=== PATIENT | male | born 1980 | race Hispanic/Latino ===

== ENCOUNTER 2021-01-06 16:28 | Inpatient (IN) | payer OTHER, SELFPAY ==
[2021-01-06] MEDS ORDERED: SODIUM CHLORIDE 0.9% 1000 ML 1,000 ML IV ONE ×3 (16:42→18:15)
[2021-01-06] MEDS ORDERED: LORazepam 2 MG/ML VIAL ONE (17:03)
[2021-01-06 17:16] LABS: Bilirubin,Urine NEG (Negative); Blood,Urine NEG (Negative); Color,Urine Yellow (Yellow); Mucus,Urine FEW /HPF; Protein,Urine <15 mg/dL mg/dL (Negative); Urobilinogen,Urine < 2.0 mg/dL (<2.0)
[2021-01-06 17:24] LABS: Benzodiazepines Screen,Urine Negative; Cocaine Screen,Urine Negative; Methadone Screen,Urine Negative; Opiate Screen,Urine Negative
--- NOTE | 2021-01-06 17:30 | Emergency Department Report ---
HPI - General Chief Complaint: Psych Time Seen by Provider: 01/06/21 16:40 - HPI HPI: 40-year-old male with history of unknown psychiatric disorder off of his medications as well as methamphetamine use brought in by EMS after the patient called 911 and stated that he needed to be evaluated because he used a bunch of meth. He stated that he has been off of his psychiatric medications and he feels that he is being followed. He apparently denied SI/HI to EMS but he did tell them that last night he thought the police were coming for him and so he swallowed "an eight ball of meth". After the patient was brought in by EMS and while waiting for bed to be available, the patient went to use the bathroom and provided a urine sample. He again went to use the bathroom and after approximately 2 minutes when one of the staff heard gurgling they opened the door and discovered the patient with his own belt wrapped around his neck which was tied to a part of the toilet. The belt was immediately cut and the patient was moved to a stretcher with assistance. I was called over at this time and this was my first introduction to the patient. When I went to assess the patient he was with snoring respirations with obvious ligature heredia around his neck and a plethoric appearing face. He was not following commands. He had a strong pulse. I immediately had the patient brought into a monitored room. Further details of the HPI are thus limited due to the patient's clinical condition. ED Past Medical Hx - Past Medical History Previous Medical History?: Yes Additional medical history: Psychiatric history, methamphetamine use - Social History Substance Use Type: Methamphetamines ED Review of Systems ROS: Stated complaint: PARANOID Other details as noted in HPI Comment: Unobtainable due to pts medical conditions Physical Exam - Physical Exam Physical Exam: Initial assessment as dictated in the MDM. The following physical examination was performed after appropriate sedation was achieved to ensure safety of both the patient and our staff. GENERAL: Well developed and well nourished. Extremely somnolent and with GCS of 10 HEAD: Normocephalic. No obvious contusions, lacerations, or abrasions. ENT: Dry mucous membranes. Abrasion seen to the inner lower lip EYES: Pupils are equal round and reactive to light bilaterally NECK: Trachea is midline. LUNGS: Snoring respirations but with appropriate rate. Equal chest rise bilaterally. Clear to auscultation bilaterally. CARDIOVASCULAR: Tachycardic but with regular rhythm. No murmurs or rubs. VASCULAR: Cap refill < 2 seconds. 2+ pulses in all 4 extremities ABDOMEN: Abdomen is soft and nondistended. There is no significant tenderness, guarding or rebound. SKIN: Skin is warm and dry but slightly pale. The patient's chest and abdomen are shaved and there are several scattered lesions consistent with folliculitis NEURO: Patient is sedated and unable to cooperate with neurologic examination. His GCS is 10 (E3, V2, M5). 2+ DTRs. No rigidity. Prior to sedation patient was moving all 4 extremities with great strength BACK/SPINE: No step-offs of the C/T/L spine. No obvious contusions/abrasions/lacerations ED Medical Decision Making - Lab Data Result diagrams: 01/06/21 17:21 01/06/21 17:21 Lab Results 01/06/21 01/06/21 01/06/21 Range/Units 17:21 17:21 17:21 WBC 7.1 (4.5-11.0) K/mm3 RBC 4.85 (3.65-5.03) M/mm3 Hgb 15.8 H (11.8-15.2) gm/dl Hct 46.1 H (35.5-45.6) % MCV 95 H (84-94) fl MCH 33 H (28-32) pg MCHC 34 (32-34) % RDW 15.4 H (13.2-15.2) % Plt Count 188 (140-440) K/mm3 Lymph % (Auto) 12.5 L (13.4-35.0) % Tama % (Auto) 8.7 H (0.0-7.3) % Eos % (Auto) 0.5 (0.0-4.3) % Baso % (Auto) 0.5 (0.0-1.8) % Lymph # (Auto) 0.9 L (1.2-5.4) K/mm3 Tama # (Auto) 0.6 (0.0-0.8) K/mm3 Eos # (Auto) 0.0 (0.0-0.4) K/mm3 Baso # (Auto) 0.0 (0.0-0.1) K/mm3 Seg Neutrophils % 77.8 H (40.0-70.0) % Seg Neutrophils # 5.5 (1.8-7.7) K/mm3 Sodium 134 L (137-145) mmol/L Potassium 4.1 (3.6-5.0) mmol/L Chloride 94.6 L (98-107) mmol/L Carbon Dioxide 14 L (22-30) mmol/L Anion Gap 30 mmol/L BUN 8 L (9-20) mg/dL Creatinine 1.0 (0.8-1.3) mg/dL Estimated GFR > 60 ml/min BUN/Creatinine Ratio 8 % Glucose 122 H (75-100) mg/dL Calcium 9.5 (8.4-10.2) mg/dL Total Bilirubin 0.90 (0.1-1.2) mg/dL AST 53 H (5-40) units/L ALT 42 (7-56) units/L Alkaline Phosphatase 61 (35-129) units/L Total Creatine Kinase (55-170) units/L Total Protein 7.2 (6.3-8.2) g/dL Albumin 4.1 (3.9-5) g/dL Albumin/Globulin Ratio 1.3 % TSH (0.270-4.200) mlU/mL Salicylates < 0.3 L (2.8-20.0) mg/dL Acetaminophen (10.0-30.0) ug/mL Plasma/Serum Alcohol (0-0.07) % 01/06/21 01/06/21 01/06/21 Range/Units 17:21 17:21 17:21 WBC (4.5-11.0) K/mm3 RBC (3.65-5.03) M/mm3 Hgb (11.8-15.2) gm/dl Hct (35.5-45.6) % MCV (84-94) fl MCH (28-32) pg MCHC (32-34) % RDW (13.2-15.2) % Plt Count (140-440) K/mm3 Lymph % (Auto) (13.4-35.0) % Tama % (Auto) (0.0-7.3) % Eos % (Auto) (0.0-4.3) % Baso % (Auto) (0.0-1.8) % Lymph # (Auto) (1.2-5.4) K/mm3 Tama # (Auto) (0.0-0.8) K/mm3 Eos # (Auto) (0.0-0.4) K/mm3 Baso # (Auto) (0.0-0.1) K/mm3 Seg Neutrophils % (40.0-70.0) % Seg Neutrophils # (1.8-7.7) K/mm3 Sodium (137-145) mmol/L Potassium (3.6-5.0) mmol/L Chloride (98-107) mmol/L Carbon Dioxide (22-30) mmol/L Anion Gap mmol/L BUN (9-20) mg/dL Creatinine (0.8-1.3) mg/dL Estimated GFR ml/min BUN/Creatinine Ratio % Glucose (75-100) mg/dL Calcium (8.4-10.2) mg/dL Total Bilirubin (0.1-1.2) mg/dL AST (5-40) units/L ALT (7-56) units/L Alkaline Phosphatase (35-129) units/L Total Creatine Kinase (55-170) units/L Total Protein (6.3-8.2) g/dL Albumin (3.9-5) g/dL Albumin/Globulin Ratio % TSH 2.610 (0.270-4.200) mlU/mL Salicylates (2.8-20.0) mg/dL Acetaminophen 5.0 L (10.0-30.0) ug/mL Plasma/Serum Alcohol < 0.01 (0-0.07) % 01/06/21 Range/Units 17:21 WBC (4.5-11.0) K/mm3 RBC (3.65-5.03) M/mm3 Hgb (11.8-15.2) gm/dl Hct (35.5-45.6) % MCV (84-94) fl MCH (28-32) pg MCHC (32-34) % RDW (13.2-15.2) % Plt Count (140-440) K/mm3 Lymph % (Auto) (13.4-35.0) % Tama % (Auto) (0.0-7.3) % Eos % (Auto) (0.0-4.3) % Baso % (Auto) (0.0-1.8) % Lymph # (Auto) (1.2-5.4) K/mm3 Tama # (Auto) (0.0-0.8) K/mm3 Eos # (Auto) (0.0-0.4) K/mm3 Baso # (Auto) (0.0-0.1) K/mm3 Seg Neutrophils % (40.0-70.0) % Seg Neutrophils # (1.8-7.7) K/mm3 Sodium (137-145) mmol/L Potassium (3.6-5.0) mmol/L Chloride (98-107) mmol/L Carbon Dioxide (22-30) mmol/L Anion Gap mmol/L BUN (9-20) mg/dL Creatinine (0.8-1.3) mg/dL Estimated GFR ml/min BUN/Creatinine Ratio % Glucose (75-100) mg/dL Calcium (8.4-10.2) mg/dL Total Bilirubin (0.1-1.2) mg/dL AST (5-40) units/L ALT (7-56) units/L Alkaline Phosphatase (35-129) units/L Total Creatine Kinase 505 H (55-170) units/L Total Protein (6.3-8.2) g/dL Albumin (3.9-5) g/dL Albumin/Globulin Ratio % TSH (0.270-4.200) mlU/mL Salicylates (2.8-20.0) mg/dL Acetaminophen (10.0-30.0) ug/mL Plasma/Serum Alcohol (0-0.07) % - EKG Data -: EKG Interpreted by Mi - EKG Data 01/06/21 18:27 Normal sinus rhythm. Normal axis. Normal intervals. No ectopy. No significant ST segment or T wave abnormalities. - Radiology Data CHEST 1 VIEW 01/06/2021 4:40 PM INDICATION / CLINICAL INFORMATION: Medical Cl earance Psych; s/p attempted strangulation. COMPARISON: None available. FINDINGS: SUPPORT DEVICES: None. HEART / MEDIASTINUM: No significant abnormality. LUNGS / PLEURA: No significant pulmonary abnormality. No significant pleural effusion. No pneumothorax. ADDITIONAL FINDINGS: No significant additional findings. IMPRESSION: 1. No acute abnormality of the chest. Signer Name: Brent Grady MD Signed: 01/06/2021 4:44 PM Workstation Name: [id number] ABDOMEN 1 VIEW INDICATION / CLINICAL INFORMATION: Says he ingested "8-ball" of meth. COMPARISON: None available. FINDINGS: TUBES / LINES: None. BOWEL GAS PATTERN: No significant abnormality. FREE AIR / EXTRALUMINAL GAS: None seen. ADDITIONAL FINDINGS: No radiopaque foreign bodies are identified. IMPRESSION: No radiopaque foreign body or other significant abnormality. Signer Name: Brent Grady MD Signed: 01/06/2021 4:47 PM Workstation Name: [id number] - Medical Decision Making 40-year-old male with history of unknown psychiatric disorder off of his medications as well as methamphetamine use brought in by EMS after the patient called 911 and stated that he needed to be evaluated because he used "a bunch of meth." He stated that he has been off of his psychiatric medications and relayed paranoid thoughts to EMS. He also told them that last night he thought the police were coming for him and so he swallowed "an eight ball of meth". After the patient was brought in by EMS and while waiting for bed to be available, the patient at one point went to use the bathroom and after approximately 2 minutes when one of the staff that was monitoring him heard gurgling they immediately entered the bathroom and discovered the patient with his own belt wrapped around his neck which was tied to a part of the toilet. The belt was immediately cut and the patient was moved to a stretcher with assistance. I was called over at this time and this was my first introduction to the patient. When I went to assess the patient he was with snoring respirations with obvious ligature heredia around his neck and a plethoric appearing face. He was not following commands. He had a strong pulse. I immediately had the patient brought into a monitored room. Although initially the patient was unarousable, he soon became very agitated and began yelling and screaming and trying to fight with staff. For his safety, the patient was put in four-point restraints and 5 mg of IM Haldol and 50 mg of Benadryl were admin istered followed by 2 mg of Ativan. He remained tachycardic in the 150s and with extreme agitation and a further 2 mg of Ativan was given. Shortly thereafter, when the patient became more sedated I was able to assess him further and he was noted to have heart rate in the 130s, normal blood pressure, normal temperature, normal oxygen saturation on room air. He is noted to have dry mucous membranes and an abrasion to his inner lower lip. He is diaphoretic. His pupils are equal round and reactive to light bilaterally. Otherwise there are no significant abnormalities discovered on physical examination. Given that the patient admitted to use of methamphetamine and attempted to end his own life, 2013 order was signed and initiated. Full medical clearance set of labs were ordered. In addition I have also ordered CT of the head and C-spine to assess for evidence of intracranial hemorrhage, or cervical spine injury given that the patient was unconscious when initially discovered. Because he reported swallowing a bag of methamphetamine, I have also ordered a chest x-ray and KUB. CK was added to medical clearance labs as well as EKG. 2 L of IV fluids have been ordered. We will plan to give Ativan if necessary for his agitation. We will place a call to poison control. At 5:15 PM I spoke to Butch from [place] poison control regarding the case. He agrees with my current work-up and management and recommends only further supportive care and control of agitation with benzodiazepines. On repeat assessment at 5:50 PM, the patient's tachycardia has resolved. His heart rate is in the 80s. His blood pressure is normal. His oxygen saturation is in the high 90s on room air. Awaiting diagnostic study results. Labs have resulted and reveal white blood cell count of 7.1 and hemoglobin of 15.8 which is consistent with hemoconcentration due to dehydration. His creatinine is 1.0 and his BUN is 8 but he has a bicarb of 14 and CK of 505. There are otherwise no significant electrolyte abnormalities. Urinalysis is within normal limits. UDS is positive for methamphetamine and THC. Acetaminophen, salicylates, and blood alcohol are negative. I have ordered an additional 1 L of IV fluids. Chest x-ray reveals no evidence of pneumonia and no other acute abnormalities. KUB reveals no radiopaque foreign bodies and no other significant abnormalities. We will continue to monitor the patient closely. Despite giving the patient several hours to washout, he remains with extreme agitation requiring multiple doses of IV lorazepam. At 9:37 PM, the patient was found banging his head against the side railing despite being in four-point restraints. He was given Ativan with subsequent sedation. He has only a small superficial laceration to the nose. There is no septal hematoma. We will add CT of the face to the other scans. CT of the head, face, and C-spine reveal no acute traumatic injuries At 10 PM I spoke with Dr. Munoz the on-call hospitalist regarding the case. He accepts the patient for admission to the ICU and will assume care. Critical Care Time: Yes Critical care time in (mins) excluding proc time.: 90 Critical care attestation.: If time is entered above; I have spent that time in minutes in the direct care of this critically ill patient, excluding procedure time. Critical care time was spent in the evaluation/assessment, work-up, and management of attempted suicide by hanging, methamphetamine intoxication, hyperactive delirium requiring four-point restraints, multiple doses of IV sedatives, supplemental oxygen, and multiple reevaluations and reassessments ED Disposition Clinical Impression: Suicide attempt by hanging, Methamphetamine intoxication, Acute hyperactive delirium due to multiple etiologies, Contusion of face Disposition: -09 OP ADMIT IP TO THIS HOSP Is pt being admited?: Yes Condition: Serious
[2021-01-06 17:36] LABS: Amphetamine Screen,Urine Positive; Cannabinoid Screen,Urine Positive
[2021-01-06] MEDS ORDERED: HALOPERIDOL LACTATE 5 MG/1 ML INJ IM ONE (17:44)
[2021-01-06] MEDS ORDERED: diphenhydrAMINE 50 MG/ML VIAL IV ONE (17:45)
[2021-01-06] MEDS ORDERED: LORazepam 2 MG/ML VIAL IV ONE ×7 (17:45→21:40)
--- NOTE | 2021-01-06 17:49 | XRay Report ---
CHEST 1 VIEW 01/06/2021 4:40 PM INDICATION / CLINICAL INFORMATION: Medical Clearance Psych; s/p attempted strangulation. COMPARISON: None available. FINDINGS: SUPPORT DEVICES: None. HEART / MEDIASTINUM: No significant abnormality. LUNGS / PLEURA: No significant pulmonary abnormality. No significant pleural effusion. No pneumothora x. ADDITIONAL FINDINGS: No significant additional findings. IMPRESSION: 1. No acute abnormality of the chest. Signer Name: Brent Grady MD Signed: 01/06/2021 5:44 PM Workstation Name: [id number]
--- NOTE | 2021-01-06 17:52 | XRay Report ---
ABDOMEN 1 VIEW INDICATION / CLINICAL INFORMATION: Says he ingested "8-ball" of meth. COMPARISON: None available. FINDINGS: TUBES / LINES: None. BOWEL GAS PATTERN: No significant abnormality. FREE AIR / EXTRALUMINAL GAS: None seen. ADDITIONAL FINDINGS: No radiopaque foreign bodies are identified. IMPRESSION: No radiopaque foreign body or other significant abnormality. Signer Name: Brent Grady MD Signed: 01/06/2021 5:47 PM Workstation Name: [id number]
[2021-01-06 18:01] LABS: Alanine Aminotransferase 42 units/L (7-56); Albumin 4.1 g/dL (3.9-5); BUN/Creatinine Ratio 8; Blood Urea Nitrogen 8 mg/dL (9-20); Calcium 9.5 mg/dL (8.4-10.2); Hemolysis Index 148
[2021-01-06 18:07] LABS: Basophils % (Auto) 0.5 % (0.0-1.8); Eosinophils % (Auto) 0.5 % (0.0-4.3); Hematocrit 46.1 % (35.5-45.6); Hemoglobin 15.8 gm/dl (11.8-15.2); Lymphocytes # (Auto) 0.9 K/mm3 (1.2-5.4); Lymphocytes % (Auto) 12.5 % (13.4-35.0); Mean Corpuscular HGB Conc 34 % (32-34); Mean Corpuscular Volume 95 fl (84-94); Monocytes # (Auto) 0.6 K/mm3 (0.0-0.8); Monocytes % (Auto) 8.7 % (0.0-7.3); Red Blood Count 4.85 M/mm3 (3.65-5.03); Red Cell Distribution Width 15.4 % (13.2-15.2)
[2021-01-06 18:09] LABS: Platelet Count 188 K/mm3 (140-440)
[2021-01-06] MEDS ORDERED: LORazepam 2 MG/ML VIAL IM ONE (20:05)
--- NOTE | 2021-01-06 22:16 | Cat Scan Report ---
CT HEAD WITHOUT CONTRAST INDICATION / CLINICAL INFORMATION: Status-Post attempted strangulation. TECHNIQUE: All CT scans at this location are performed using CT dose reduction for ALARA by means of automated e xposure control. COMPARISON: None available. FINDINGS: HEMORRHAGE: No evidence of intracranial hemorrhage or extra-axial fluid collection. EXTRA-AXIAL SPACES: Cortical sulci, sylvian fissures and basilar cisterns have an unremarkable appear ance. VENTRICULAR SYSTEM: The third and lateral ventricles are of normal size and configuration. CEREBRAL PARENCHYMA: No areas of abnormal brain parenchymal attenuation are identified. There is no i ndication of recent infarction. MIDLINE SHIFT OR HERNIATION: There is no mass effect. CEREBELLUM / BRAINSTEM: Brainstem and cerebellum have an unremarkable appearance. MIDLINE STRUCTURES:No abnormalities of the pituitary gland or pineal region are identified. INTRACRANIAL VESSELS:No abnormalities are identified on this noncontrast head CT. ORBITS: visualized portions of the orbits have an unremarkable appearance. SOFT TISSUES of HEAD: No significant abnormality. CALVARIUM: Evaluation of bone windows reveals no abnormalities. PARANASAL SINUSES / MASTOID AIR CELLS: Visualized portions of the paranasal sinuses are free from inf lammatory mucosal disease. Mastoid air cells are normally pneumatized. IMPRESSION: 1. No significant intercranial abnormality is demonstrated on head CT without contrast. Signer Name: Jacky Marin MD Signed: 01/06/2021 10:11 PM Workstation Name: [id number]
--- NOTE | 2021-01-06 22:19 | Cat Scan Report ---
CT MAXILLOFACIAL WITHOUT CONTRAST INDICATION / CLINICAL INFORMATION: trauma. TECHNIQUE: All CT scans at this location are performed using CT dose reduction for ALARA by means of automated e xposure control. COMPARISON: None available. FINDINGS: FACIAL BONES: No fracture or other significant abnormality. COUNSEL SPACES:Evaluation of the calender machine operator space structures reveal no abnormalities. SALIVARY GLANDS: Visualized portions of the parotid and the submandibular salivary glands have an unr emarkable appearance. PARANASAL SINUSES: No significant abnormality. NASAL CAVITY: No significant abnormality. ORBITS: Globes, optic nerves and extraocular muscles have an unremarkable appearance. TEMPORAL BONES:Visualized mastoid air cells and the middle ear cavities are normally pneumatized. VISUALIZED INTRACRANIAL STRUCTURES: Please refer to head CT report dictated separately. IMPRESSION: 1. No indication of facial fracture. Signer Name: Jacky Marin MD Signed: 01/06/2021 10:15 PM Workstation Name: [id number]
--- NOTE | 2021-01-06 22:22 | Cat Scan Report ---
CT CERVICAL SPINE WITHOUT CONTRAST INDICATION / CLINICAL INFORMATION: Status-Post attempted strangulation. TECHNIQUE: Axial CT images were obtained through the cervical spine. Sagittal and coronal reformatted images wer e produced. All CT scans at this location are performed using CT dose reduction for ALARA by means of automated exposure control. COMPARISON: None available. FINDINGS: ALIGNMENT: Normal alignment is maintained throughout cervical region. VERTEBRAE: No indication of fracture or bone destruction. DISC SPACES: Disc height is decreased slightly at the C5-6 level but normally maintained elsewhere. DEGENERATIVE CHANGES: Small anterior and posterior osteophytes are present at the C5-6 level. There i s no indication of central canal stenosis or neuroforaminal narrowing. CRANIOCERVICAL JUNCTION:No significant abnormality. SPINAL CANAL: Central spinal canal is adequately maintained throughout. PARASPINAL SOFT TISSUES: No significant abnormality. Abnormalities are seen along the course of the a irway. ADDITIONAL FINDINGS: None. LUNG APICES: No significant abnormality of visualized lungs. IMPRESSION: 1. No indication of fracture or traumatic subluxation. Signer Name: Jacky Marin MD Signed: 01/06/2021 10:18 PM Workstation Name: [id number]
[2021-01-06] MEDS ORDERED: TETANUS,DIPH,PERTUSS(ACELL) VACCINE 0.5 ML SYRINGE IM ONE (23:14)
[2021-01-06] MEDS ORDERED: MAGNESIUM HYDROXIDE (MOM) ORAL LIQD UDC PO PRN (23:34)
[2021-01-06] MEDS ORDERED: ACETAMINOPHEN 325 MG TAB PO PRN (23:34)
[2021-01-06] MEDS ORDERED: SODIUM CHLORIDE 0.9% 1000 ML 1,000 ML IV SCH (23:45)
--- NOTE | 2021-01-06 23:48 | History and Physical Report ---
History of Present Illness Date of examination: 01/06/21 Date of admission: 01/06/21 21:56 Chief complaint: Methamphetamine Ingestion Suicide Attempt History of present illness: 40-year-old male with known history of mental illness and methamphetamine abuse brought into the emergency room by EMS today after he had called 911 and indicates he wants to be evaluated because he used quite a bit of methamphetamine. Patient admitted he had been off his psychiatric medications and needed to be evaluated. He was said to have swallowed a bunch of methamphetamine. Upon arrival in the emergency room patient was said to have gone to the bathroom when his was found to have tied to Díaz's around his neck and also tight to the toilet in an attempt to commit suicide.. He was said to have denied suicidal and homicidal ideations to the ER staff upon arrival. Most of the history was gotten from the ER staff as patient is unable to give any history at this time. He was said to be quite agitated with when he was being restrained in the emergency room. He also sustained some bruises over his face and nose when he was being restrained. Work-up in the emergency room UDS was positive for methamphetamine, other significant findings were that of hemoglobin of 15.8 and hematocrit of 46.1. He had a mild hyponatremia of 134. Poison control was consulted for his methamphetamine ingestion. Recommendation is to have patient monitored and also to place on benzodiazepine as needed for agitation. Past History Past Medical History: other (Mental Illness, Methamphetamine Use) Past Surgical History: No surgical history Social history: other (Methamphetamine Use) Family history: no significant family history Medications and Allergies Allergies Allergy/AdvReac Type Severity Reaction Status Date / Time Unable to Assess Allergy Unverified 01/06/21 17:58 Active Meds: Active Medications Acetaminophen (Acetaminophen 325 Mg Tab) 650 mg PO Q6H PRN PRN Reason: Pain MILD(1-3)/Fever >100.5/WATTS Sodium Chloride (Nacl 0.9% 1000 Ml) 1,000 mls @ 125 mls/hr IV DIRECT CATRINA Magnesium Hydroxide (Magnesium Hydroxide (Mom) Oral Liqd Udc) 30 ml PO Q4H PRN PRN Reason: Constipation Morphine Sulfate (Morphine 2 Mg/1 Ml Inj) 2 mg IV Q4H PRN PRN Reason: Pain, Moderate (4-6) Morphine Sulfate (Morphine 4 Mg/1 Ml Inj) 4 mg IV Q4H PRN PRN Reason: Pain , Severe (7-10) Sodium Chloride (Sodium Chloride 0.9% 10 Ml Flush Syringe) 10 ml IV BID CATRINA Sodium Chloride (Sodium Chloride 0.9% 10 Ml Flush Syringe) 10 ml IV PRN PRN PRN Reason: LINE FLUSH Review of Systems ROS unobtainable: due to mental status Exam - Constitutional Vitals: Temp Pulse Resp BP Pulse Ox 98.4 F 78 18 143/98 99 01/06/21 18:07 01/06/21 22:12 01/06/21 22:12 01/06/21 22:12 01/06/21 22:12 General appearance: Present: no acute distress, well-nourished, other (Bruises over the face) - EENT Eyes: Present: PERRL, EOM intact. Absent: scleral icterus ENT: hearing intact, clear oral mucosa, dentition normal - Neck Neck: Present: supple, normal ROM - Respiratory Respiratory effort: normal Respiratory: bilateral: CTA - Cardiovascular Rhythm: regular Heart Sounds: Present: S1 & S2. Absent: gallop, systolic murmur, diastolic murmur, rub, click - Extremities Extremities: no ischemia, pulses intact, pulses symmetrical, No edema, normal temperature, normal color, Full ROM Peripheral Pulses: within normal limits - Abdominal General gastrointestinal: Present: soft, non-tender, non-distended, normal bowel sounds. Absent: mass - Integumentary Integumentary: Present: clear, warm, dry - Musculoskeletal Musculoskeletal: strength equal bilaterally - Psychiatric Psychiatric: agitated - Neurologic Neurologic: CNII-XII intact, moves all extremities Results - Labs CBC & Chem 7: 01/06/21 17:21 01/06/21 17:21 Labs: Abnormal lab results 01/06/21 01/06/21 01/06/21 Range/Units 17:21 17:21 17:21 Hgb 15.8 H (11.8-15.2) gm/dl Hct 46.1 H (35.5-45.6) % MCV 95 H (84-94) fl MCH 33 H (28-32) pg RDW 15.4 H (13.2-15.2) % Lymph % (Auto) 12.5 L (13.4-35.0) % [place] % (Auto) 8.7 H (0.0-7.3) % Lymph # (Auto) 0.9 L (1.2-5.4) K/mm3 Seg Neutrophils % 77.8 H (40.0-70.0) % Sodium 134 L (137-145) mmol/L Chloride 94.6 L (98-107) mmol/L Carbon Dioxide 14 L (22-30) mmol/L BUN 8 L (9-20) mg/dL Glucose 122 H (75-100) mg/dL AST 53 H (5-40) units/L Total Creatine Kinase (55-170) units/L Salicylates < 0.3 L (2.8-20.0) mg/dL Acetaminophen (10.0-30.0) ug/mL 01/06/21 01/06/21 Range/Units 17:21 17:21 Hgb (11.8-15.2) gm/dl Hct (35.5-45.6) % MCV (84-94) fl MCH (28-32) pg RDW (13.2-15.2) % Lymph % (Auto) (13.4-35.0) % [place] % (Auto) (0.0-7.3) % Lymph # (Auto) (1.2-5.4) K/mm3 Seg Neutrophils % (40.0-70.0) % Sodium (137-145) mmol/L Chloride (98-107) mmol/L Carbon Dioxide (22-30) mmol/L BUN (9-20) mg/dL Glucose (75-100) mg/dL AST (5-40) units/L Total Creatine Kinase 505 H (55-170) units/L Salicylates (2.8-20.0) mg/dL Acetaminophen 5.0 L (10.0-30.0) ug/mL Assessment and Plan - Patient Problems (1) Suicide attempt by hanging Current Visit: Yes Status: Acute Plan to address problem: Patient has been placed on suicide precautions. Will await mental health evaluation. (2) Acute hyperactive delirium due to multiple etiologies Current Visit: Yes Status: Acute Plan to address problem: Patient has underlying history of mental illness. He also has had methamphetamine ingestion. Will monitor mental status. (3) Contusion of face Current Visit: Yes Status: Acute Plan to address problem: Dressing will be done on wound on the face as needed. (4) Methamphetamine intoxication Current Visit: Yes Status: Acute Plan to address problem: Patient will be closely monitored. Will place on lorazepam as needed for agitation. (5) DVT prophylaxis Current Visit: Yes Status: Acute Plan to address problem: Patient placed on subcutaneous heparin. (6) Full code status Current Visit: Yes Status: Acute Plan to address problem: Patient is full code.
[2021-01-07] MEDS ORDERED: TETANUS,DIPH,PERTUSS(ACELL) VACCINE 0.5 ML SYRINGE IM ONE (03:05)
[2021-01-07 05:11] LABS: Blood Urea Nitrogen 5 mg/dL (9-20); Calcium 8.2 mg/dL (8.4-10.2); Hemolysis Index 8
[2021-01-07 05:33] LABS: BUN/Creatinine Ratio 8
[2021-01-07] MEDS: HEPARIN 5,000 UNIT/1 ML VIAL SUB-Q SCH ×3 (05:40→22:17)
[2021-01-07] MEDS: LORazepam 2 MG/ML VIAL IV PRN (05:40)
[2021-01-07 05:43] LABS: Basophils % (Auto) 0.3 % (0.0-1.8); Eosinophils % (Auto) 0.4 % (0.0-4.3); Hematocrit 39.7 % (35.5-45.6); Hemoglobin 13.8 gm/dl (11.8-15.2); Lymphocytes # (Auto) 0.9 K/mm3 (1.2-5.4); Lymphocytes % (Auto) 13.7 % (13.4-35.0); Mean Corpuscular HGB Conc 35 % (32-34); Mean Corpuscular Volume 91 fl (84-94); Monocytes # (Auto) 0.5 K/mm3 (0.0-0.8); Monocytes % (Auto) 8.2 % (0.0-7.3); Platelet Count 221 K/mm3 (140-440); Red Blood Count 4.35 M/mm3 (3.65-5.03); Red Cell Distribution Width 15.3 % (13.2-15.2)
[2021-01-07 05:46] LABS: INR 1.01 (0.87-1.13)
--- NOTE | 2021-01-07 10:23 | Consultation ---
History of Present Illness - Reason for Consult Consult date: 01/07/21 Reason for consult: suicidal attempt. - Chief Complaint Chief complaint: Methamphetamine Ingestion Suicide Attempt - History of Present Psychiatric Illness ED Note: 40-year-old male with history of unknown psychiatric disorder off of his medications as well as methamphetamine use brought in by EMS after the patient called 911 and stated that he needed to be evaluated because he used a bunch of meth. He stated that he has been off of his psychiatric medications and he feels that he is being followed. He apparently denied SI/HI to EMS but he did tell them that last night he thought the police were coming for him and so he swallowed "an eight ball of meth". After the patient was brought in by EMS and while waiting for bed to be available, the patient went to use the bathroom and provided a urine sample. He again went to use the bathroom and after approximately 2 minutes when one of the staff heard gurgling they opened the door and discovered the patient with his own belt wrapped around his neck which was tied to a part of the toilet. The belt was immediately cut and the patient was moved to a stretcher with assistance. I was called over at this time and this was my first introduction to the patient. When I went to assess the patient he was with snoring respirations with obvious ligature heredia around his neck and a plethoric appearing face. He was not following commands. He had a strong pulse. I immediately had the patient brought into a monitored room. Further details of the HPI are thus limited due to the patient's clinical condition. The Patient was seen in the bed with four-point restraints. Unable to assess patient due to sedation. PAST PSYCHIATRIC HISTORY:Unable to assess PAST MEDICAL HISTORY: unknown Family Psychiatric History: None reported or documented SOCIAL HISTORY:Unable to assess REVIEW OF SYSTEMS:Unable to assess MENTAL STATUS EXAMINATION: Unable to assess Diagnoses: Major depressive Disorder Current Visit: Yes Status: Acute F33.1 RECOMMENDATIONS: Continue 1013 Risks, benefits and alternatives of medications discussed with the patient, questions answered and consent obtained from patient. PSYCHOTHERAPY: Supportive psychotherapy provided MEDICAL: Per primary team DELIRIUM PRECAUTIONS: Please re-orient patient frequently, keep lights on during the day, and minimize benzodiazepines and opiates as these medications could worsen patient's confusion. CASH CONTROL SPECIALIST: Per medical team DISPOSITION:Recommend acute inpatient psychiatric hospitalization. FOLLOW-UP:Will follow. Please contact with any questions and/or concerns. Medications and Allergies Allergies Allergy/AdvReac Type Severity Reaction Status Date / Time Unable to Assess Allergy Unverified 01/06/21 17:58 Active Meds: Active Medications Acetaminophen (Acetaminophen 325 Mg Tab) 650 mg PO Q6H PRN PRN Reason: Pain MILD(1-3)/Fever >100.5/WATTS Heparin Sodium (Porcine) (Heparin 5,000 Unit/1 Ml Vial) 5,000 unit SUB-Q Q8HR CATRINA Last Admin: 01/07/21 05:40 Dose: 5,000 unit Documented by: Sodium Chloride (Nacl 0.9% 1000 Ml) 1,000 mls @ 125 mls/hr IV DIRECT CATRINA Last Admin: 01/07/21 02:40 Dose: 125 mls/hr Documented by: Lorazepam (Lorazepam 2 Mg/Ml Vial) 2 mg IV Q4H PRN PRN Reason: Agitation Last Admin: 01/07/21 05:40 Dose: 2 mg Documented by: Magnesium Hydroxide (Magnesium Hydroxide (Mom) Oral Liqd Udc) 30 ml PO Q4H PRN PRN Reason: Constipation Morphine Sulfate (Morphine 2 Mg/1 Ml Inj) 2 mg IV Q4H PRN PRN Reason: Pain, Moderate (4-6) Morphine Sulfate (Morphine 4 Mg/1 Ml Inj) 4 mg IV Q4H PRN PRN Reason: Pain , Severe (7-10) Sodium Chloride (Sodium Chloride 0.9% 10 Ml Flush Syringe) 10 ml IV BID CATRINA Sodium Chloride (Sodium Chloride 0.9% 10 Ml Flush Syringe) 10 ml IV PRN PRN PRN Reason: LINE FLUSH Mental Status Exam - Vital signs Last Vital Signs Temp 98.4 F 01/06/21 18:07 Pulse 69 01/07/21 06:01 Resp 17 01/07/21 05:49 BP 133/98 01/07/21 06:01 Pulse Ox 100 01/07/21 06:01 Results Result Diagrams: 01/07/21 04:43 01/07/21 04:43 Abnormal lab results 01/06/21 01/06/21 01/06/21 Range/Units 17:21 17:21 17:21 Hgb 15.8 H (11.8-15.2) gm/dl Hct 46.1 H (35.5-45.6) % MCV 95 H (84-94) fl MCH 33 H (28-32) pg MCHC (32-34) % RDW 15.4 H (13.2-15.2) % Lymph % (Auto) 12.5 L (13.4-35.0) % [place] % (Auto) 8.7 H (0.0-7.3) % Lymph # (Auto) 0.9 L (1.2-5.4) K/mm3 Seg Neutrophils % 77.8 H (40.0-70.0) % Sodium 134 L (137-145) mmol/L Chloride 94.6 L (98-107) mmol/L Carbon Dioxide 14 L (22-30) mmol/L BUN 8 L (9-20) mg/dL Creatinine (0.8-1.3) mg/dL Glucose 122 H (75-100) mg/dL Calcium (8.4-10.2) mg/dL AST 53 H (5-40) units/L Total Creatine Kinase (55-170) units/L Salicylates < 0.3 L (2.8-20.0) mg/dL Acetaminophen (10.0-30.0) ug/mL 01/06/21 01/06/21 01/07/21 Range/Units 17:21 17:21 04:43 Hgb (11.8-15.2) gm/dl Hct (35.5-45.6) % MCV (84-94) fl MCH (28-32) pg MCHC 35 H (32-34) % RDW 15.3 H (13.2-15.2) % Lymph % (Auto) (13.4-35.0) % [place] % (Auto) 8.2 H (0.0-7.3) % Lymph # (Auto) 0.9 L (1.2-5.4) K/mm3 Seg Neutrophils % 77.4 H (40.0-70.0) % Sodium (137-145) mmol/L Chloride (98-107) mmol/L Carbon Dioxide (22-30) mmol/L BUN (9-20) mg/dL Creatinine (0.8-1.3) mg/dL Glucose (75-100) mg/dL Calcium (8.4-10.2) mg/dL AST (5-40) units/L Total Creatine Kinase 505 H (55-170) units/L Salicylates (2.8-20.0) mg/dL Acetaminophen 5.0 L (10.0-30.0) ug/mL 01/07/21 Range/Units 04:43 Hgb (11.8-15.2) gm/dl Hct (35.5-45.6) % MCV (84-94) fl MCH (28-32) pg MCHC (32-34) % RDW (13.2-15.2) % Lymph % (Auto) (13.4-35.0) % [place] % (Auto) (0.0-7.3) % Lymph # (Auto) (1.2-5.4) K/mm3 Seg Neutrophils % (40.0-70.0) % Sodium (137-145) mmol/L Chloride (98-107) mmol/L Carbon Dioxide (22-30) mmol/L BUN 5 L (9-20) mg/dL Creatinine 0.6 L (0.8-1.3) mg/dL Glucose (75-100) mg/dL Calcium 8.2 L (8.4-10.2) mg/dL AST (5-40) units/L Total Creatine Kinase (55-170) units/L Salicylates (2.8-20.0) mg/dL Acetaminophen (10.0-30.0) ug/mL All other labs normal.
--- NOTE | 2021-01-07 11:12 | Progress Note ---
Assessment and Plan Assessment and plan: Suicide attempt by hanging. Acute hyperactive delirium secondary to multiple etiologies. Methamphetamine intoxication/overdose Neck and face contusions. 01/07/2021. Patient is currently on four-point restraints and somnolent. Continue 1013 and psychiatry consultation pending. CT scan of the head, face and C-spine revealed no acute traumatic injuries. The patient has received several dosages of medication for chemical restraining associated with extreme agitation per ER record. Please see ED note. Labs at present appear unremarkable. Continue to monitor. History Interval history: 40-year-old male who presented through the emergency department with methamphetamine overdose. According to the ER record, after the patient was brought in by EMS and while waiting for bed to be available, the patient went to use the bathroom and provided a urine sample. He again went to use the bathroom and after approximately 2 minutes when one of the staff heard gurgling they opened the door and discovered the patient with his own belt wrapped around his neck which was tied to a part of the toilet. The belt was immediately cut and the patient was moved to a stretcher with assistance. Patient is currently in four-point restraints somnolent and only responsive to pain Hospitalist Physical - Constitutional Vitals: Temp Pulse Resp BP Pulse Ox 98.4 F 69 17 133/98 100 01/06/21 18:07 01/07/21 06:01 01/07/21 05:49 01/07/21 06:01 01/07/21 06:01 General appearance: Present: no acute distress, well-nourished, other (Bruises over the face) - EENT Eyes: Present: PERRL, EOM intact ENT: hearing intact, clear oral mucosa, dentition normal - Neck Neck: Present: supple, normal ROM - Respiratory Respiratory effort: normal Respiratory: bilateral: CTA - Cardiovascular Rhythm: regular Heart Sounds: Present: S1 & S2. Absent: gallop, rub - Extremities Extremities: no ischemia, No edema, Full ROM - Abdominal General gastrointestinal: soft, non-tender, non-distended, normal bowel sounds - Integumentary Integumentary: Present: clear, warm, dry - Neurologic Neurologic: CNII-XII intact, moves all extremities Results - Labs CBC & Chem 7: 01/07/21 04:43 01/07/21 04:43 Labs: Laboratory Last Values WBC 6.5 K/mm3 (4.5-11.0) 01/07/21 04:43 RBC 4.35 M/mm3 (3.65-5.03) 01/07/21 04:43 Hgb 13.8 gm/dl (11.8-15.2) 01/07/21 04:43 Hct 39.7 % (35.5-45.6) D 01/07/21 04:43 MCV 91 fl (84-94) 01/07/21 04:43 MCH 32 pg (28-32) 01/07/21 04:43 MCHC 35 % (32-34) H 01/07/21 04:43 RDW 15.3 % (13.2-15.2) H 01/07/21 04:43 Plt Count 221 K/mm3 (140-440) 01/07/21 04:43 Lymph % (Auto) 13.7 % (13.4-35.0) 01/07/21 04:43 [place] % (Auto) 8.2 % (0.0-7.3) H 01/07/21 04:43 Eos % (Auto) 0.4 % (0.0-4.3) 01/07/21 04:43 Baso % (Auto) 0.3 % (0.0-1.8) 01/07/21 04:43 Lymph # (Auto) 0.9 K/mm3 (1.2-5.4) L 01/07/21 04:43 [place] # (Auto) 0.5 K/mm3 (0.0-0.8) 01/07/21 04:43 Eos # (Auto) 0.0 K/mm3 (0.0-0.4) 01/07/21 04:43 Baso # (Auto) 0.0 K/mm3 (0.0-0.1) 01/07/21 04:43 Seg Neutrophils % 77.4 % (40.0-70.0) H 01/07/21 04:43 Seg Neutrophils # 5.1 K/mm3 (1.8-7.7) 01/07/21 04:43 PT 13.8 Sec. (12.2-14.9) 01/07/21 04:43 INR 1.01 (0.87-1.13) 01/07/21 04:43 Sodium 137 mmol/L (137-145) 01/07/21 04:43 Potassium 4.0 mmol/L (3.6-5.0) 01/07/21 04:43 Chloride 102.5 mmol/L (98-107) 01/07/21 04:43 Carbon Dioxide 23 mmol/L (22-30) D 01/07/21 04:43 Anion Gap 16 mmol/L 01/07/21 04:43 BUN 5 mg/dL (9-20) L 01/07/21 04:43 Creatinine 0.6 mg/dL (0.8-1.3) L 01/07/21 04:43 Estimated GFR > 60 ml/min 01/07/21 04:43 BUN/Creatinine Ratio 8 % 01/07/21 04:43 Glucose 82 mg/dL (75-100) 01/07/21 04:43 Calcium 8.2 mg/dL (8.4-10.2) L 01/07/21 04:43 Total Bilirubin 0.90 mg/dL (0.1-1.2) 01/06/21 17:21 AST 53 units/L (5-40) H 01/06/21 17:21 ALT 42 units/L (7-56) 01/06/21 17:21 Alkaline Phosphatase 61 units/L (35-129) 01/06/21 17:21 Total Creatine Kinase 505 units/L (55-170) H 01/06/21 17:21 Total Protein 7.2 g/dL (6.3-8.2) 01/06/21 17:21 Albumin 4.1 g/dL (3.9-5) 01/06/21 17:21 Albumin/Globulin Ratio 1.3 % 01/06/21 17:21 TSH 2.610 mlU/mL (0.270-4.200) 01/06/21 17:21 Urine Color Yellow (Yellow) 01/06/21 Unknown Urine Turbidity Clear (Clear) 01/06/21 Unknown Urine pH 6.0 (5.0-7.0) 01/06/21 Unknown Ur Specific [place] 1.010 (1.003-1.030) 01/06/21 Unknown Urine Protein <15 mg/dl mg/dL (Negative) 01/06/21 Unknown Urine Glucose (UA) Neg mg/dL (Negative) 01/06/21 Unknown Urine Ketones Tr mg/dL (Negative) 01/06/21 Unknown Urine Blood Neg (Negative) 01/06/21 Unknown Urine Nitrite Neg (Negative) 01/06/21 Unknown Urine Bilirubin Neg (Negative) 01/06/21 Unknown Urine Urobilinogen < 2.0 mg/dL (<2.0) 01/06/21 Unknown Ur Leukocyte Esterase Neg (Negative) 01/06/21 Unknown Urine WBC (Auto) 2.0 /HPF (0.0-6.0) 01/06/21 Unknown Urine RBC (Auto) 1.0 /HPF (0.0-6.0) 01/06/21 Unknown Urine Mucus Few /HPF 01/06/21 Unknown Salicylates < 0.3 mg/dL (2.8-20.0) L 01/06/21 17:21 Urine Opiates Screen Negative 01/06/21 Unknown Urine Methadone Screen Negative 01/06/21 Unknown Acetaminophen 5.0 ug/mL (10.0-30.0) L 01/06/21 17:21 Ur Barbiturates Screen Negative 01/06/21 Unknown Ur Phencyclidine Scrn Negative 01/06/21 Unknown Ur Amphetamines Screen Positive 01/06/21 Unknown U Benzodiazepines Scrn Negative 01/06/21 Unknown Urine Cocaine Screen Negative 01/06/21 Unknown U Marijuana (THC) Screen Positive 01/06/21 Unknown Drugs of Abuse Note Disclamer 01/06/21 Unknown Plasma/Serum Alcohol < 0.01 % (0-0.07) 01/06/21 17:21 Active Medications - Current Medications Current Medications: Generic Name Dose Route Start Last Admin Trade Name Freq PRN Reason Stop Dose Admin Acetaminophen 650 mg 01/06/21 23:34 Acetaminophen 325 Mg Tab PO Q6H PRN Pain MILD(1-3)/Fever >100.5/WATTS Heparin Sodium (Porcine) 5,000 unit 01/07/21 06:00 01/07/21 05:40 Heparin 5,000 Unit/1 Ml Vial SUB-Q 5,000 unit Q8HR CATRINA Administration Sodium Chloride 1,000 mls @ 125 mls/hr 01/06/21 23:45 01/07/21 02:40 Nacl 0.9% 1000 Ml IV 125 mls/hr DIRECT CATRINA Administration Lorazepam 2 mg 01/07/21 04:47 01/07/21 05:40 Lorazepam 2 Mg/Ml Vial IV 2 mg Q4H PRN Administration Agitation Magnesium Hydroxide 30 ml 01/06/21 23:34 Magnesium Hydroxide (Mom) Oral Liqd Udc PO Q4H PRN Constipation Morphine Sulfate 2 mg 01/06/21 23:34 Morphine 2 Mg/1 Ml Inj IV Q4H PRN Pain, Moderate (4-6) Morphine Sulfate 4 mg 01/06/21 23:34 Morphine 4 Mg/1 Ml Inj IV Q4H PRN Pain , Severe (7-10) Sodium Chloride 10 ml 01/07/21 10:00 01/07/21 11:02 Sodium Chloride 0.9% 10 Ml Flush Syringe IV 10 ml BID CATRINA Administration Sodium Chloride 10 ml 01/06/21 23:34 Sodium Chloride 0.9% 10 Ml Flush Syringe IV PRN PRN LINE FLUSH Nutrition/Malnutrition Assess - Dietary Evaluation Nutrition/Malnutrition Findings: Nutrition Notes Start: 01/07/21 07:33 Freq: Status: Active Protocol: Document 01/07/21 07:33 ERVIN (Rec: 01/07/21 07:35 ERVIN [id number]) Nutrition Notes Need for Assessment generated from: MD Order Initial or Follow up Brief Note Other Pertinent Diagnosis suicide attempt, delirium, methamphetamine intoxication Current Diet regular Subjective/Other Information MD consult for diet education. Pt on hold in ED. Pt admitted for suicide attempt. Pt has no indications for diet education. Nutrition Intervention Revisit per MD consult or patient Sign Off request: Additional Comments Please reconsult if needed
--- NOTE | 2021-01-07 13:00 | Electrocardiograph Report ---
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
--- NOTE | 2021-01-07 13:52 | Event Note ---
Date: 01/07/21 No longer in 4 point restraints or agitated no indication for ICU admission please reconsult if needed thank you
[2021-01-08 05:51] LABS: Basophils % (Auto) 0.8 % (0.0-1.8); Eosinophils # (Auto) 0.1 K/mm3 (0.0-0.4); Eosinophils % (Auto) 2.6 % (0.0-4.3); Hematocrit 42.5 % (35.5-45.6); Hemoglobin 15.1 gm/dl (11.8-15.2); Lymphocytes # (Auto) 0.8 K/mm3 (1.2-5.4); Lymphocytes % (Auto) 18.6 % (13.4-35.0); Mean Corpuscular HGB Conc 36 % (32-34); Mean Corpuscular Volume 92 fl (84-94); Monocytes # (Auto) 0.4 K/mm3 (0.0-0.8); Monocytes % (Auto) 8.1 % (0.0-7.3); Platelet Count 201 K/mm3 (140-440); Red Blood Count 4.64 M/mm3 (3.65-5.03); Red Cell Distribution Width 15.4 % (13.2-15.2)
[2021-01-08] MEDS: HEPARIN 5,000 UNIT/1 ML VIAL SUB-Q SCH ×3 (06:00→22:09)
[2021-01-08 06:14] LABS: Blood Urea Nitrogen 7 mg/dL (9-20); Calcium 8.1 mg/dL (8.4-10.2); Hemolysis Index 4
[2021-01-08 06:17] LABS: BUN/Creatinine Ratio 10
--- NOTE | 2021-01-08 08:55 | Progress Note ---
Assessment and Plan Assessment and plan: Suicide attempt by hanging. Acute hyperactive delirium secondary to multiple etiologies. Methamphetamine intoxication/overdose Neck and face contusions. 01/07/2021. Patient is currently on four-point restraints and somnolent. Continue 1013 and psychiatry consultation pending. CT scan of the head, face and C-spine revealed no acute traumatic injuries. The patient has received several dosages of medication for chemical restraining associated with extreme agitation per ER record. Please see ED note. Labs at present appear unremarkable. Continue to monitor. 01/08/2021. Patient currently calm and not needing restraints. Patient currently with 1013 designation. Await psychiatry evaluation. Transfer to telemetry floor with one-to-one sitter. Suicidal precautions. History Interval history: 40-year-old male who presented through the emergency department with methamphetamine overdose. According to the ER record, after the patient was brought in by EMS and while waiting for bed to be available, the patient went to use the bathroom and provided a urine sample. He again went to use the bathroom and after approximately 2 minutes when one of the staff heard gurgling they opened the door and discovered the patient with his own belt wrapped around his neck which was tied to a part of the toilet. The belt was immediately cut and the patient was moved to a stretcher with assistance. Patient eventually was stabilized and not requiring restraints. [address] Await psychiatric evaluation Hospitalist Physical - Constitutional Vitals: Temp Pulse Resp BP Pulse Ox 98 F 79 14 115/75 100 01/08/21 05:49 01/08/21 05:49 01/08/21 05:49 01/08/21 05:49 01/08/21 05:49 General appearance: Present: no acute distress, well-nourished, other (Bruises over the face) - EENT Eyes: Present: PERRL, EOM intact ENT: hearing intact, clear oral mucosa, dentition normal - Neck Neck: Present: supple, normal ROM - Respiratory Respiratory effort: normal Respiratory: bilateral: CTA - Cardiovascular Rhythm: regular Heart Sounds: Present: S1 & S2. Absent: gallop, rub - Extremities Extremities: no ischemia, No edema, Full ROM - Abdominal General gastrointestinal: soft, non-tender, non-distended, normal bowel sounds - Integumentary Integumentary: Present: clear, warm, dry - Neurologic Neurologic: CNII-XII intact, moves all extremities Results - Labs CBC & Chem 7: 01/08/21 05:14 01/08/21 05:14 Labs: Laboratory Last Values WBC 4.4 K/mm3 (4.5-11.0) L 01/08/21 05:14 RBC 4.64 M/mm3 (3.65-5.03) 01/08/21 05:14 Hgb 15.1 gm/dl (11.8-15.2) 01/08/21 05:14 Hct 42.5 % (35.5-45.6) 01/08/21 05:14 MCV 92 fl (84-94) 01/08/21 05:14 MCH 33 pg (28-32) H 01/08/21 05:14 MCHC 36 % (32-34) H 01/08/21 05:14 RDW 15.4 % (13.2-15.2) H 01/08/21 05:14 Plt Count 201 K/mm3 (140-440) 01/08/21 05:14 Lymph % (Auto) 18.6 % (13.4-35.0) 01/08/21 05:14 [place] % (Auto) 8.1 % (0.0-7.3) H 01/08/21 05:14 Eos % (Auto) 2.6 % (0.0-4.3) 01/08/21 05:14 Baso % (Auto) 0.8 % (0.0-1.8) 01/08/21 05:14 Lymph # (Auto) 0.8 K/mm3 (1.2-5.4) L 01/08/21 05:14 [place] # (Auto) 0.4 K/mm3 (0.0-0.8) 01/08/21 05:14 Eos # (Auto) 0.1 K/mm3 (0.0-0.4) 01/08/21 05:14 Baso # (Auto) 0.0 K/mm3 (0.0-0.1) 01/08/21 05:14 Seg Neutrophils % 69.9 % (40.0-70.0) 01/08/21 05:14 Seg Neutrophils # 3.1 K/mm3 (1.8-7.7) 01/08/21 05:14 PT 13.8 Sec. (12.2-14.9) 01/07/21 04:43 INR 1.01 (0.87-1.13) 01/07/21 04:43 Sodium 137 mmol/L (137-145) 01/08/21 05:14 Potassium 3.7 mmol/L (3.6-5.0) 01/08/21 05:14 Chloride 102.1 mmol/L (98-107) 01/08/21 05:14 Carbon Dioxide 24 mmol/L (22-30) 01/08/21 05:14 Anion Gap 15 mmol/L 01/08/21 05:14 BUN 7 mg/dL (9-20) L 01/08/21 05:14 Creatinine 0.7 mg/dL (0.8-1.3) L 01/08/21 05:14 Estimated GFR > 60 ml/min 01/08/21 05:14 BUN/Creatinine Ratio 10 % 01/08/21 05:14 Glucose 97 mg/dL (75-100) 01/08/21 05:14 Calcium 8.1 mg/dL (8.4-10.2) L 01/08/21 05:14 Total Bilirubin 0.90 mg/dL (0.1-1.2) 01/06/21 17:21 AST 53 units/L (5-40) H 01/06/21 17:21 ALT 42 units/L (7-56) 01/06/21 17:21 Alkaline Phosphatase 61 units/L (35-129) 01/06/21 17:21 Total Creatine Kinase 505 units/L (55-170) H 01/06/21 17:21 Total Protein 7.2 g/dL (6.3-8.2) 01/06/21 17:21 Albumin 4.1 g/dL (3.9-5) 01/06/21 17:21 Albumin/Globulin Ratio 1.3 % 01/06/21 17:21 TSH 2.610 mlU/mL (0.270-4.200) 01/06/21 17:21 Urine Color Yellow (Yellow) 01/06/21 Unknown Urine Turbidity Clear (Clear) 01/06/21 Unknown Urine pH 6.0 (5.0-7.0) 01/06/21 Unknown Ur Specific [place] 1.010 (1.003-1.030) 01/06/21 Unknown Urine Protein <15 mg/dl mg/dL (Negative) 01/06/21 Unknown Urine Glucose (UA) Neg mg/dL (Negative) 01/06/21 Unknown Urine Ketones Tr mg/dL (Negative) 01/06/21 Unknown Urine Blood Neg (Negative) 01/06/21 Unknown Urine Nitrite Neg (Negative) 01/06/21 Unknown Urine Bilirubin Neg (Negative) 01/06/21 Unknown Urine Urobilinogen < 2.0 mg/dL (<2.0) 01/06/21 Unknown Ur Leukocyte Esterase Neg (Negative) 01/06/21 Unknown Urine WBC (Auto) 2.0 /HPF (0.0-6.0) 01/06/21 Unknown Urine RBC (Auto) 1.0 /HPF (0.0-6.0) 01/06/21 Unknown Urine Mucus Few /HPF 01/06/21 Unknown Salicylates < 0.3 mg/dL (2.8-20.0) L 01/06/21 17:21 Urine Opiates Screen Negative 01/06/21 Unknown Urine Methadone Screen Negative 01/06/21 Unknown Acetaminophen 5.0 ug/mL (10.0-30.0) L 01/06/21 17:21 Ur Barbiturates Screen Negative 01/06/21 Unknown Ur Phencyclidine Scrn Negative 01/06/21 Unknown Ur Amphetamines Screen Positive 01/06/21 Unknown U Benzodiazepines Scrn Negative 01/06/21 Unknown Urine Cocaine Screen Negative 01/06/21 Unknown U Marijuana (THC) Screen Positive 01/06/21 Unknown Drugs of Abuse Note Disclamer 01/06/21 Unknown Plasma/Serum Alcohol < 0.01 % (0-0.07) 01/06/21 17:21 Coronavirus (PCR) Negative (Negative) 01/07/21 07:59 Active Medications - Current Medications Current Medications: Generic Name Dose Route Start Last Admin Trade Name Freq PRN Reason Stop Dose Admin Acetaminophen 650 mg 01/06/21 23:34 Acetaminophen 325 Mg Tab PO Q6H PRN Pain MILD(1-3)/Fever >100.5/WATTS Heparin Sodium (Porcine) 5,000 unit 01/07/21 06:00 01/08/21 06:00 Heparin 5,000 Unit/1 Ml Vial SUB-Q 5,000 unit Q8HR CATRINA Administration Sodium Chloride 1,000 mls @ 125 mls/hr 01/06/21 23:45 01/07/21 02:40 Nacl 0.9% 1000 Ml IV 125 mls/hr DIRECT CATRINA Administration Lorazepam 2 mg 01/07/21 04:47 01/07/21 05:40 Lorazepam 2 Mg/Ml Vial IV 2 mg Q4H PRN Administration Agitation Magnesium Hydroxide 30 ml 01/06/21 23:34 Magnesium Hydroxide (Mom) Oral Liqd Udc PO Q4H PRN Constipation Morphine Sulfate 2 mg 01/06/21 23:34 Morphine 2 Mg/1 Ml Inj IV Q4H PRN Pain, Moderate (4-6) Morphine Sulfate 4 mg 01/06/21 23:34 Morphine 4 Mg/1 Ml Inj IV Q4H PRN Pain , Severe (7-10) Sodium Chloride 10 ml 01/07/21 10:00 01/07/21 22:17 Sodium Chloride 0.9% 10 Ml Flush Syringe IV 10 ml BID CATRINA Administration Sodium Chloride 10 ml 01/06/21 23:34 Sodium Chloride 0.9% 10 Ml Flush Syringe IV PRN PRN LINE FLUSH Nutrition/Malnutrition Assess - Dietary Evaluation Nutrition/Malnutrition Findings: Nutrition Notes Start: 01/07/21 07:33 Freq: Status: Active Protocol: Document 01/07/21 07:33 ERVIN (Rec: 01/07/21 07:35 [id number]) Nutrition Notes Need for Assessment generated from: MD Order Initial or Follow up Brief Note Other Pertinent Diagnosis suicide attempt, delirium, methamphetamine intoxication Current Diet regular Subjective/Other Information MD consult for diet education. Pt on hold in ED. Pt admitted for suicide attempt. Pt has no indications for diet education. Nutrition Intervention Revisit per MD consult or patient Sign Off request: Additional Comments Please reconsult if needed
--- NOTE | 2021-01-08 11:53 | Progress Note ---
Subjective - Reason for Consult Consult date: 01/08/21 Reason for consult: mental health evaluation - Chief Complaint Chief complaint: The patient was seen standing by the bedside, the patient presents with confusion and disorganized thoughts he states " You are all trying to kill me; these people have been following me. " The patient endorse suicidal ideation with a plan to find a blade. Diagnoses: unknown Suicide attempts or Self-harm behavior:yes Prior psychiatric hospitalizations: unknown Substance Abuse history: Meth Previous psychiatric medications tried: Unknown Outpatient treatment: Unknown PAST MEDICAL HISTORY: None reported Family Psychiatric History: None reported or documented SOCIAL HISTORY Marital Status: Unknown Living Arrangements: Unknown Employment Status: Unknown Access to guns/weapons: Denies Education: unknown History of Abuse: none reported Legal History: none reported REVIEW OF SYSTEMS Constitutional: Negative for weight loss ENT: Negative for stridor Respiratory: Negative for cough or hemoptysis All other systems reviewed and are negative MENTAL STATUS EXAMINATION General Appearance and Behavior: Age appropriate, good hygiene, wearing appropriate clothes, cooperative, cooperative Cooperation: Participating/engaged Psychomotor Behavior: normal Mood: OK Affect and affective range: congruent with stated mood Thought Process: Illogical Thought Content: SI Speech: Normal volume, Regular rate and rhythm Suicidal Ideation: Yes Homicidal Ideation: Denies Hallucinations:Yes Delusions: None elicited Impulse Control: impaired Insight and Judgment: poor insight and judgment, Memory: normal Attention: Normal Orientation: Alert, oriented Assessment and Plan (1) Acute Psychosis Current Visit: Yes Status: Acute Treatment Plan Continue 1013 Sitter: Per primary Medical: Per primary Disposition: Recommend acute psychiatric inpatient treatment Will follow. Thanks Case staffed with Dr. Valverde Mental Status Exam - Vital signs Last Vital Signs Temp 98 F 01/08/21 05:49 Pulse 79 01/08/21 05:49 Resp 14 01/08/21 05:49 BP 115/75 01/08/21 05:49 Pulse Ox 100 01/08/21 05:49
[2021-01-08] MEDS: LORazepam 2 MG/ML VIAL IV PRN (16:02)
[2021-01-08] MEDS: MORPHINE 2 MG/1 ML INJ IV PRN (16:03)
[2021-01-09] MEDS: HEPARIN 5,000 UNIT/1 ML VIAL SUB-Q SCH ×4 (06:13→23:09)
[2021-01-09] MEDS: MORPHINE 4 MG/1 ML INJ IV PRN (06:13)
--- NOTE | 2021-01-09 09:08 | Progress Note ---
Assessment and Plan Assessment and plan: Suicide attempt by hanging. Acute hyperactive delirium secondary to multiple etiologies. Methamphetamine intoxication/overdose Neck and face contusions. 01/07/2021. Patient is currently on four-point restraints and somnolent. Continue 1013 and psychiatry consultation pending. CT scan of the head, face and C-spine revealed no acute traumatic injuries. The patient has received several dosages of medication for chemical restraining associated with extreme agitation per ER record. Please see ED note. Labs at present appear unremarkable. Continue to monitor. 01/08/2021. Patient currently calm and not needing restraints. Patient currently with 1013 designation. Await psychiatry evaluation. Transfer to telemetry floor with one-to-one sitter. Suicidal precautions. 01/09/2021. Patient is calm and not requiring restraints. Continue 1013 per psychiatry. Await inpatient psych transfer. Patient is medically stable for discharge. History Interval history: 40-year-old male who presented through the emergency department with methamphetamine overdose. According to the ER record, after the patient was brought in by EMS and while waiting for bed to be available, the patient went to use the bathroom and provided a urine sample. He again went to use the bathroom and after approximately 2 minutes when one of the staff heard gurgling they opened the door and discovered the patient with his own belt wrapped around his neck which was tied to a part of the toilet. The belt was immediately cut and the patient was moved to a stretcher with assistance. Patient eventually was stabilized and not requiring restraints. Hospitalist Physical - Constitutional Vitals: Temp Pulse Resp BP Pulse Ox 98.0 F 83 18 95/60 99 01/09/21 01:35 01/09/21 06:00 01/09/21 01:35 01/09/21 01:35 01/09/21 01:35 General appearance: Present: no acute distress, well-nourished, other (Bruises over the face) - EENT Eyes: Present: PERRL, EOM intact ENT: hearing intact, clear oral mucosa, dentition normal - Neck Neck: Present: supple, normal ROM - Respiratory Respiratory effort: normal Respiratory: bilateral: CTA - Cardiovascular Rhythm: regular Heart Sounds: Present: S1 & S2. Absent: gallop, rub - Extremities Extremities: no ischemia, No edema, Full ROM - Abdominal General gastrointestinal: soft, non-tender, non-distended, normal bowel sounds - Integumentary Integumentary: Present: clear, warm, dry - Neurologic Neurologic: CNII-XII intact, moves all extremities Results - Labs CBC & Chem 7: 01/08/21 05:14 01/08/21 05:14 Labs: Laboratory Last Values WBC 4.4 K/mm3 (4.5-11.0) L 01/08/21 05:14 RBC 4.64 M/mm3 (3.65-5.03) 01/08/21 05:14 Hgb 15.1 gm/dl (11.8-15.2) 01/08/21 05:14 Hct 42.5 % (35.5-45.6) 01/08/21 05:14 MCV 92 fl (84-94) 01/08/21 05:14 MCH 33 pg (28-32) H 01/08/21 05:14 MCHC 36 % (32-34) H 01/08/21 05:14 RDW 15.4 % (13.2-15.2) H 01/08/21 05:14 Plt Count 201 K/mm3 (140-440) 01/08/21 05:14 Lymph % (Auto) 18.6 % (13.4-35.0) 01/08/21 05:14 [place] % (Auto) 8.1 % (0.0-7.3) H 01/08/21 05:14 Eos % (Auto) 2.6 % (0.0-4.3) 01/08/21 05:14 Baso % (Auto) 0.8 % (0.0-1.8) 01/08/21 05:14 Lymph # (Auto) 0.8 K/mm3 (1.2-5.4) L 01/08/21 05:14 [place] # (Auto) 0.4 K/mm3 (0.0-0.8) 01/08/21 05:14 Eos # (Auto) 0.1 K/mm3 (0.0-0.4) 01/08/21 05:14 Baso # (Auto) 0.0 K/mm3 (0.0-0.1) 01/08/21 05:14 Seg Neutrophils % 69.9 % (40.0-70.0) 01/08/21 05:14 Seg Neutrophils # 3.1 K/mm3 (1.8-7.7) 01/08/21 05:14 PT 13.8 Sec. (12.2-14.9) 01/07/21 04:43 INR 1.01 (0.87-1.13) 01/07/21 04:43 Sodium 137 mmol/L (137-145) 01/08/21 05:14 Potassium 3.7 mmol/L (3.6-5.0) 01/08/21 05:14 Chloride 102.1 mmol/L (98-107) 01/08/21 05:14 Carbon Dioxide 24 mmol/L (22-30) 01/08/21 05:14 Anion Gap 15 mmol/L 01/08/21 05:14 BUN 7 mg/dL (9-20) L 01/08/21 05:14 Creatinine 0.7 mg/dL (0.8-1.3) L 01/08/21 05:14 Estimated GFR > 60 ml/min 01/08/21 05:14 BUN/Creatinine Ratio 10 % 01/08/21 05:14 Glucose 97 mg/dL (75-100) 01/08/21 05:14 Calcium 8.1 mg/dL (8.4-10.2) L 01/08/21 05:14 Total Bilirubin 0.90 mg/dL (0.1-1.2) 01/06/21 17:21 AST 53 units/L (5-40) H 01/06/21 17:21 ALT 42 units/L (7-56) 01/06/21 17:21 Alkaline Phosphatase 61 units/L (35-129) 01/06/21 17:21 Total Creatine Kinase 505 units/L (55-170) H 01/06/21 17:21 Total Protein 7.2 g/dL (6.3-8.2) 01/06/21 17:21 Albumin 4.1 g/dL (3.9-5) 01/06/21 17:21 Albumin/Globulin Ratio 1.3 % 01/06/21 17:21 TSH 2.610 mlU/mL (0.270-4.200) 01/06/21 17:21 Urine Color Yellow (Yellow) 01/06/21 Unknown Urine Turbidity Clear (Clear) 01/06/21 Unknown Urine pH 6.0 (5.0-7.0) 01/06/21 Unknown Ur Specific [place] 1.010 (1.003-1.030) 01/06/21 Unknown Urine Protein <15 mg/dl mg/dL (Negative) 01/06/21 Unknown Urine Glucose (UA) Neg mg/dL (Negative) 01/06/21 Unknown Urine Ketones Tr mg/dL (Negative) 01/06/21 Unknown Urine Blood Neg (Negative) 01/06/21 Unknown Urine Nitrite Neg (Negative) 01/06/21 Unknown Urine Bilirubin Neg (Negative) 01/06/21 Unknown Urine Urobilinogen < 2.0 mg/dL (<2.0) 01/06/21 Unknown Ur Leukocyte Esterase Neg (Negative) 01/06/21 Unknown Urine WBC (Auto) 2.0 /HPF (0.0-6.0) 01/06/21 Unknown Urine RBC (Auto) 1.0 /HPF (0.0-6.0) 01/06/21 Unknown Urine Mucus Few /HPF 01/06/21 Unknown Salicylates < 0.3 mg/dL (2.8-20.0) L 01/06/21 17:21 Urine Opiates Screen Negative 01/06/21 Unknown Urine Methadone Screen Negative 01/06/21 Unknown Acetaminophen 5.0 ug/mL (10.0-30.0) L 01/06/21 17:21 Ur Barbiturates Screen Negative 01/06/21 Unknown Ur Phencyclidine Scrn Negative 01/06/21 Unknown Ur Amphetamines Screen Positive 01/06/21 Unknown U Benzodiazepines Scrn Negative 01/06/21 Unknown Urine Cocaine Screen Negative 01/06/21 Unknown U Marijuana (THC) Screen Positive 01/06/21 Unknown Drugs of Abuse Note Disclamer 01/06/21 Unknown Plasma/Serum Alcohol < 0.01 % (0-0.07) 01/06/21 17:21 Coronavirus (PCR) Negative (Negative) 01/07/21 07:59 Active Medications - Current Medications Current Medications: Generic Name Dose Route Start Last Admin Trade Name Freq PRN Reason Stop Dose Admin Acetaminophen 650 mg 01/06/21 23:34 01/08/21 22:09 Acetaminophen 325 Mg Tab PO 650 mg Q6H PRN Administration Pain MILD(1-3)/Fever >100.5/WATTS Heparin Sodium (Porcine) 5,000 unit 01/07/21 06:00 01/09/21 06:13 Heparin 5,000 Unit/1 Ml Vial SUB-Q 5,000 unit Q8HR CATRINA Administration Sodium Chloride 1,000 mls @ 125 mls/hr 01/06/21 23:45 01/07/21 02:40 Nacl 0.9% 1000 Ml IV 125 mls/hr DIRECT CATRINA Administration Lorazepam 2 mg 01/07/21 04:47 01/08/21 16:02 Lorazepam 2 Mg/Ml Vial IV 2 mg Q4H PRN Administration Agitation Magnesium Hydroxide 30 ml 01/06/21 23:34 Magnesium Hydroxide (Mom) Oral Liqd Udc PO Q4H PRN Constipation Morphine Sulfate 2 mg 01/06/21 23:34 01/08/21 16:03 Morphine 2 Mg/1 Ml Inj IV 2 mg Q4H PRN Administration Pain, Moderate (4-6) Morphine Sulfate 4 mg 01/06/21 23:34 01/09/21 06:13 Morphine 4 Mg/1 Ml Inj IV 4 mg Q4H PRN Administration Pain , Severe (7-10) Sodium Chloride 10 ml 01/07/21 10:00 01/08/21 22:09 Sodium Chloride 0.9% 10 Ml Flush Syringe IV 10 ml BID CATRINA Administration Sodium Chloride 10 ml 01/06/21 23:34 Sodium Chloride 0.9% 10 Ml Flush Syringe IV PRN PRN LINE FLUSH Nutrition/Malnutrition Assess - Dietary Evaluation Nutrition/Malnutrition Findings: Nutrition Notes Start: 01/07/21 07:33 Freq: Status: Active Protocol: Document 01/07/21 07:33 (Rec: 01/07/21 07:35 [email or web address]) Nutrition Notes Need for Assessment generated from: MD Order Initial or Follow up Brief Note Other Pertinent Diagnosis suicide attempt, delirium, methamphetamine intoxication Current Diet regular Subjective/Other Information MD consult for diet education. Pt on hold in ED. Pt admitted for suicide attempt. Pt has no indications for diet education. Nutrition Intervention Revisit per MD consult or patient Sign Off request: Additional Comments Please reconsult if needed
--- NOTE | 2021-01-09 12:11 | Progress Note ---
Subjective - Reason for Consult Consult date: 01/09/21 Reason for consult: SA - Chief Complaint Chief complaint: The patient was seen resting in the bed with the sitter in the room. He reports doing well. The patient reports sleep and appetite as good. He denies any current suicidal/ homicidal ideation and denies hallucinations. Diagnoses: unknown Suicide attempts or Self-harm behavior:yes Prior psychiatric hospitalizations: unknown Substance Abuse history: Meth Previous psychiatric medications tried: Unknown Outpatient treatment: Unknown PAST MEDICAL HISTORY: None reported Family Psychiatric History: None reported or documented SOCIAL HISTORY Marital Status: Unknown Living Arrangements: Unknown Employment Status: Unknown Access to guns/weapons: Denies Education: unknown History of Abuse: none reported Legal History: none reported REVIEW OF SYSTEMS Constitutional: Negative for weight loss ENT: Negative for stridor Respiratory: Negative for cough or hemoptysis All other systems reviewed and are negative MENTAL STATUS EXAMINATION General Appearance and Behavior: Age appropriate, good hygiene, wearing appropriate clothes, cooperative, cooperative Cooperation: Participating/engaged Psychomotor Behavior: normal Mood: Good Affect and affective range: congruent with stated mood Thought Process: Not SI Thought Content: Self directed Speech: Normal volume, Regular rate and rhythm Suicidal Ideation: Denies Homicidal Ideation: Denies Hallucinations:Denies Delusions: None elicited Impulse Control: impaired Insight and Judgment: Limited insight and judgment, Memory: normal Attention: Normal Orientation: Alert, oriented Assessment and Plan (1) Acute Psychosis Current Visit: Yes Status: Acute Treatment Plan DC 1013 Sitter: Per primary Medical: Per primary Disposition: Do not recommend acute psychiatric inpatient treatment Will follow. Thanks Case staffed with Dr. Valverde Mental Status Exam - Vital signs Last Vital Signs Temp 97.6 F 01/09/21 11:56 Pulse 75 01/09/21 11:56 Resp 18 01/09/21 11:56 BP 104/64 01/09/21 11:56 Pulse Ox 97 01/09/21 11:56
[2021-01-09] MEDS: MORPHINE 2 MG/1 ML INJ IV PRN (18:10)
[2021-01-10] MEDS: HEPARIN 5,000 UNIT/1 ML VIAL SUB-Q SCH ×3 (06:28→21:07)
[2021-01-10] MEDS: MORPHINE 4 MG/1 ML INJ IV PRN ×2 (08:30→18:22)
--- NOTE | 2021-01-10 09:15 | Discharge Summary ---
Providers - Providers Date of Admission: 01/06/21 21:56 Date of discharge: 01/10/21 Attending physician: DAJA TOWNSEND 01/06/21 23:35 Consult to Dietitian/Nutrition [CONS] Routine Physician Instructions: Reason For Exam: Reason for Consult: Diet education Consult to Physician [CONS] Routine Comment: Consulting Provider: BAL DANIELSON Physician Instructions: Reason For Exam: SUICIDE ATTEMPT- ADMITTED TO ICU 01/06/21 23:42 Consult to Mental Health [CONS] Routine Reason For Exam: SUICIDE ATTEMPT 01/07/21 04:52 Consult to Wound/ET Nurse [CONS] Routine Reason For Exam: wound eval- wounds on face Primary care physician: COMPTOMETRIST Hospitalization Reason for admission: meth intoxication, suicide attempt, acute psychosis Condition: Serious Hospital course: 40-year-old male who presented through the emergency department with methamphetamine overdose. According to the ER record, after the patient was brought in by EMS and while waiting for bed to be available, the patient went to use the bathroom and provided a urine sample. He again went to use the bathroom and after approximately 2 minutes when one of the staff heard gurgling they opened the door and discovered the patient with his own belt wrapped around his neck which was tied to a part of the toilet. The belt was immediately cut and the patient was moved to a stretcher with assistance. Patient initially required four-point restraints and was noted to be somnolent and only responsive to pain. Patient was reportedly combative and received medications for sedation. The patient was admitted with diagnosis of suicide attempt by hanging, acute hyperactive delirium secondary to multiple etiologies, methamph etamine intoxication/overdose, neck and face contusions. Hospital course: 01/07/2021. Patient is currently on four-point restraints and somnolent. Continue 1013 and psychiatry consultation pending. CT scan of the head, face and C-spine revealed no acute traumatic injuries. The patient has received several dosages of medication for chemical restraining associated with extreme agitation per ER record. Please see ED note. Labs at present appear unremarkable. Continue to monitor. 01/08/2021. Patient currently calm and not needing restraints. Patient currently with 1013 designation. Await psychiatry evaluation. Transfer to telemetry floor with one-to-one sitter. Suicidal precautions. 01/09/2021. Patient is calm and not requiring restraints. Continue 1013 per psychiatry. Await inpatient psych transfer. Patient is medically stable for discharge. 01/10/2021. Psychiatry rescinded the 1013 yesterday. Psychiatry reports patient denies any suicidal/homicidal ideations or hallucinations. Please see psychiatry note for mental status examination. Psychiatry as noted above discontinued 1013 and does not recommend acute psychiatric inpatient treatment at this time. Therefore, patient is felt to have received maximal hospital benefit and will be discharged home. Dedicated discharge time 35 minutes. Disposition: DC-01 TO HOME OR SELFCARE Final Discharge Diagnosis (Prints w/discharge instructions): Suicide attempt by hanging, acute hyperactive delirium secondary to multiple etiologies, methamphetamine intoxication/overdose, neck and face contusions. Cleared by psychiatry and 1013 rescinded Core Measure Documentation - Palliative Care Palliative Care/ Comfort Measures: Not Applicable - Core Measures Any of the following diagnoses?: none Exam - Constitutional Vitals: Temp Pulse Resp BP Pulse Ox 98.6 F 78 18 109/68 95 01/10/21 08:20 01/10/21 09:02 01/10/21 08:20 01/10/21 08:20 01/10/21 09:02 General appearance: Present: no acute distress, well-nourished - EENT Eyes: Present: PERRL ENT: hearing intact, clear oral mucosa - Neck Neck: Present: supple, normal ROM - Respiratory Respiratory effort: normal Respiratory: bilateral: CTA - Cardiovascular Heart Sounds: Present: S1 & S2. Absent: rub, click - Extremities Extremities: pulses symmetrical, No edema Peripheral Pulses: within normal limits - Abdominal General gastrointestinal: Present: soft, non-tender, non-distended, normal bowel sounds Male genitourinary: Present: normal - Integumentary Integumentary: Present: clear, warm, dry - Musculoskeletal Musculoskeletal: gait normal, strength equal bilaterally - Psychiatric Psychiatric: appropriate mood/affect, intact judgment & insight - Neurologic Neurologic: CNII-XII intact, moves all extremities Plan Activity: advance as tolerated Weight Bearing Status: Weight Bear as Tolerated Follow up with: PRIMARY CARE, [Primary Care Provider] - 3-5 Days
--- NOTE | 2021-01-10 11:07 | Progress Note ---
Assessment and Plan Assessment and plan: Suicide attempt by hanging. Acute hyperactive delirium secondary to multiple etiologies. Methamphetamine intoxication/overdose Neck and face contusions. History of paroxysmal atrial fibrillation Nonischemic cardiomyopathy Chronic combined systolic and diastolic heart failure. Compensated. 01/07/2021. Patient is currently on four-point restraints and somnolent. Continue 1013 and psychiatry consultation pending. CT scan of the head, face and C-spine revealed no acute traumatic injuries. The patient has received several dosages of medication for chemical restraining associated with extreme agitation per ER record. Please see ED note. Labs at present appear unremarkable. Continue to monitor. 01/08/2021. Patient currently calm and not needing restraints. Patient currently with 1013 designation. Await psychiatry evaluation. Transfer to telemetry floor with one-to-one sitter. Suicidal precautions. 01/09/2021. Patient is calm and not requiring restraints. Continue 1013 per psychiatry. Await inpatient psych transfer. Patient is medically stable for discharge. 01/10/2021. Psychiatry has rescinded the 1013. Patient was planned for discharge but complained of chest pain today. Therefore, we will place on the chest pain pathway and follow-up cardiac isoenzymes. Schedule stress test in a.m. Cardiology consultation. Echocardiogram completed September 2020 revealed moderate concentric left ventricular hypertrophy with left ventricular systolic function moderately decreased. LVEF 35 to 40%. Also pulmonary hypertension with RVSP 36 mmHg History Interval history: 40-year-old male who presented through the emergency department with methamphetamine overdose. According to the ER record, after the patient was brought in by EMS and while waiting for bed to be available, the patient went to use the bathroom and provided a urine sample. He again went to use the bathroom and after approximately 2 minutes when one of the staff heard gurgling they opened the door and discovered the patient with his own belt wrapped around his neck which was tied to a part of the toilet. The belt was immediately cut and the patient was moved to a stretcher with assistance. Patient eventually was stabilized and not requiring restraints. Hospitalist Physical - Constitutional Vitals: Temp Pulse Resp BP Pulse Ox 98.6 F 78 18 109/68 95 01/10/21 08:20 01/10/21 09:02 01/10/21 08:20 01/10/21 08:20 01/10/21 09:02 General appearance: Present: no acute distress, well-nourished, other (Bruises over the face) - EENT Eyes: Present: PERRL, EOM intact ENT: hearing intact, clear oral mucosa, dentition normal - Neck Neck: Present: supple, normal ROM - Respiratory Respiratory effort: normal Respiratory: bilateral: CTA - Cardiovascular Rhythm: regular Heart Sounds: Present: S1 & S2. Absent: gallop, rub - Extremities Extremities: no ischemia, No edema, Full ROM - Abdominal General gastrointestinal: soft, non-tender, non-distended, normal bowel sounds - Integumentary Integumentary: Present: clear, warm, dry - Neurologic Neurologic: CNII-XII intact, moves all extremities Results - Labs CBC & Chem 7: 01/08/21 05:14 01/08/21 05:14 Labs: Laboratory Last Values WBC 4.4 K/mm3 (4.5-11.0) L 01/08/21 05:14 RBC 4.64 M/mm3 (3.65-5.03) 01/08/21 05:14 Hgb 15.1 gm/dl (11.8-15.2) 01/08/21 05:14 Hct 42.5 % (35.5-45.6) 01/08/21 05:14 MCV 92 fl (84-94) 01/08/21 05:14 MCH 33 pg (28-32) H 01/08/21 05:14 MCHC 36 % (32-34) H 01/08/21 05:14 RDW 15.4 % (13.2-15.2) H 01/08/21 05:14 Plt Count 201 K/mm3 (140-440) 01/08/21 05:14 Lymph % (Auto) 18.6 % (13.4-35.0) 01/08/21 05:14 [place] % (Auto) 8.1 % (0.0-7.3) H 01/08/21 05:14 Eos % (Auto) 2.6 % (0.0-4.3) 01/08/21 05:14 Baso % (Auto) 0.8 % (0.0-1.8) 01/08/21 05:14 Lymph # (Auto) 0.8 K/mm3 (1.2-5.4) L 01/08/21 05:14 [place] # (Auto) 0.4 K/mm3 (0.0-0.8) 01/08/21 05:14 Eos # (Auto) 0.1 K/mm3 (0.0-0.4) 01/08/21 05:14 Baso # (Auto) 0.0 K/mm3 (0.0-0.1) 01/08/21 05:14 Seg Neutrophils % 69.9 % (40.0-70.0) 01/08/21 05:14 Seg Neutrophils # 3.1 K/mm3 (1.8-7.7) 01/08/21 05:14 PT 13.8 Sec. (12.2-14.9) 01/07/21 04:43 INR 1.01 (0.87-1.13) 01/07/21 04:43 Sodium 137 mmol/L (137-145) 01/08/21 05:14 Potassium 3.7 mmol/L (3.6-5.0) 01/08/21 05:14 Chloride 102.1 mmol/L (98-107) 01/08/21 05:14 Carbon Dioxide 24 mmol/L (22-30) 01/08/21 05:14 Anion Gap 15 mmol/L 01/08/21 05:14 BUN 7 mg/dL (9-20) L 01/08/21 05:14 Creatinine 0.7 mg/dL (0.8-1.3) L 01/08/21 05:14 Estimated GFR > 60 ml/min 01/08/21 05:14 BUN/Creatinine Ratio 10 % 01/08/21 05:14 Glucose 97 mg/dL (75-100) 01/08/21 05:14 POC Glucose 122 mg/dL (70-105) H 01/09/21 21:36 Calcium 8.1 mg/dL (8.4-10.2) L 01/08/21 05:14 Total Bilirubin 0.90 mg/dL (0.1-1.2) 01/06/21 17:21 AST 53 units/L (5-40) H 01/06/21 17:21 ALT 42 units/L (7-56) 01/06/21 17:21 Alkaline Phosphatase 61 units/L (35-129) 01/06/21 17:21 Total Creatine Kinase 505 units/L (55-170) H 01/06/21 17:21 Total Protein 7.2 g/dL (6.3-8.2) 01/06/21 17:21 Albumin 4.1 g/dL (3.9-5) 01/06/21 17:21 Albumin/Globulin Ratio 1.3 % 01/06/21 17:21 TSH 2.610 mlU/mL (0.270-4.200) 01/06/21 17:21 Urine Color Yellow (Yellow) 01/06/21 Unknown Urine Turbidity Clear (Clear) 01/06/21 Unknown Urine pH 6.0 (5.0-7.0) 01/06/21 Unknown Ur Specific [place] 1.010 (1.003-1.030) 01/06/21 Unknown Urine Protein <15 mg/dl mg/dL (Negative) 01/06/21 Unknown Urine Glucose (UA) Neg mg/dL (Negative) 01/06/21 Unknown Urine Ketones Tr mg/dL (Negative) 01/06/21 Unknown Urine Blood Neg (Negative) 01/06/21 Unknown Urine Nitrite Neg (Negative) 01/06/21 Unknown Urine Bilirubin Neg (Negative) 01/06/21 Unknown Urine Urobilinogen < 2.0 mg/dL (<2.0) 01/06/21 Unknown Ur Leukocyte Esterase Neg (Negative) 01/06/21 Unknown Urine WBC (Auto) 2.0 /HPF (0.0-6.0) 01/06/21 Unknown Urine RBC (Auto) 1.0 /HPF (0.0-6.0) 01/06/21 Unknown Urine Mucus Few /HPF 01/06/21 Unknown Salicylates < 0.3 mg/dL (2.8-20.0) L 01/06/21 17:21 Urine Opiates Screen Negative 01/06/21 Unknown Urine Methadone Screen Negative 01/06/21 Unknown Acetaminophen 5.0 ug/mL (10.0-30.0) L 01/06/21 17:21 Ur Barbiturates Screen Negative 01/06/21 Unknown Ur Phencyclidine Scrn Negative 01/06/21 Unknown Ur Amphetamines Screen Positive 01/06/21 Unknown U Benzodiazepines Scrn Negative 01/06/21 Unknown Urine Cocaine Screen Negative 01/06/21 Unknown U Marijuana (THC) Screen Positive 01/06/21 Unknown Drugs of Abuse Note Disclamer 01/06/21 Unknown Plasma/Serum Alcohol < 0.01 % (0-0.07) 01/06/21 17:21 Coronavirus (PCR) Negative (Negative) 01/07/21 07:59 Active Medications - Current Medications Current Medications: Generic Name Dose Route Start Last Admin Trade Name Freq PRN Reason Stop Dose Admin Acetaminophen 650 mg 01/06/21 23:34 01/08/21 22:09 Acetaminophen 325 Mg Tab PO 650 mg Q6H PRN Administration Pain MILD(1-3)/Fever >100.5/WATTS Heparin Sodium (Porcine) 5,000 unit 01/07/21 06:00 01/10/21 06:28 Heparin 5,000 Unit/1 Ml Vial SUB-Q 5,000 unit Q8HR CATRINA Administration Sodium Chloride 1,000 mls @ 125 mls/hr 01/06/21 23:45 01/07/21 02:40 Nacl 0.9% 1000 Ml IV 125 mls/hr DIRECT CATRINA Administration Lorazepam 2 mg 01/07/21 04:47 01/08/21 16:02 Lorazepam 2 Mg/Ml Vial IV 2 mg Q4H PRN Administration Agitation Magnesium Hydroxide 30 ml 01/06/21 23:34 Magnesium Hydroxide (Mom) Oral Liqd Udc PO Q4H PRN Constipation Morphine Sulfate 2 mg 01/06/21 23:34 01/09/21 18:10 Morphine 2 Mg/1 Ml Inj IV 2 mg Q4H PRN Administration Pain, Moderate (4-6) Morphine Sulfate 4 mg 01/06/21 23:34 01/10/21 08:30 Morphine 4 Mg/1 Ml Inj IV 4 mg Q4H PRN Administration Pain , Severe (7-10) Sodium Chloride 10 ml 01/07/21 10:00 01/10/21 09:03 Sodium Chloride 0.9% 10 Ml Flush Syringe IV Not Given BID CATRINA Sodium Chloride 10 ml 01/06/21 23:34 Sodium Chloride 0.9% 10 Ml Flush Syringe IV PRN PRN LINE FLUSH Nutrition/Malnutrition Assess - Dietary Evaluation Nutrition/Malnutrition Findings: Nutrition Notes Start: 01/07/21 07:33 Freq: Status: Active Protocol: Document 01/07/21 07:33 ERVIN (Rec: 01/07/21 07:35 ERVIN [id number]) Nutrition Notes Need for Assessment generated from: MD Order Initial or Follow up Brief Note Other Pertinent Diagnosis suicide attempt, delirium, methamphetamine intoxication Current Diet regular Subjective/Other Information MD consult for diet education. Pt on hold in ED. Pt admitted for suicide attempt. Pt has no indications for diet education. Nutrition Intervention Revisit per MD consult or patient Sign Off request: Additional Comments Please reconsult if needed
[2021-01-10] MEDS ORDERED: ACETAMINOPHEN 325 MG TAB PO PRN (11:30)
[2021-01-10] MEDS ORDERED: traMADol 50 MG TAB PO PRN (11:30)
--- NOTE | 2021-01-10 12:58 | Progress Note ---
Assessment and Plan 40-year-old male with known history of mental illness and methamphetamine abuse brought into the emergency room by EMS today after he had called 911 and indicates he wants to be evaluated because he used quite a bit of methamphetamine. Patient admitted he had been off his psychiatric medications and needed to be evaluated. He was said to have swallowed a bunch of methamphetamine. Upon arrival in the emergency room patient was said to have gone to the bathroom when his was found to have tied to Díaz's around his neck and also tight to the toilet in an attempt to commit suicide. He was said to have denied suicidal and homicidal ideations to the ER staff upon arrival. Most of the history was gotten from the ER staff as patient is unable to give any history at this time. He was said to be quite agitated when he was being restrained in the emergency room. He also sustained some bruises over his face and nose when he was being restrained. Work-up in the emergency room UDS was positive for methamphetamine, other significant findings were that of hemoglobin of 15.8 and hematocrit of 46.1. He had a mild hyponatremia of 134. Poison control was consulted for his methamphetamine ingestion. Social history: he smoked 1 pack per day for 25 years. No EtOH. Admits to marijuana and cocaine. 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 Patient was sleeping. He is on room air, O2 sat 99%. He admits to nonspecific chest pain and slight shortness of breath. Denies cough. Patient is afebrile, blood pressure 117/83, heart rate of 67. Neutropenia present. Hemoglobin is 15.3 and hematocrit is 44. Chest x-ray (01/06/21): No acute abnormality of the chest. Medications currently: Heparin SubQ. - Patient Problems (1) Methamphetamine intoxication Current Visit: Yes Status: Acute Plan to address problem: Management as per primary care team. (2) Suicide attempt by hanging Current Visit: Yes Status: Acute Plan to address problem: Management as per psychiatry and primary care team. (3) Acute hyperactive delirium due to multiple etiologies Current Visit: Yes Status: Acute Plan to address problem: Management as per psychiatry and primary care team. (4) Contusion of face Current Visit: Yes Status: Acute Plan to address problem: Management as per primary care team. Subjective Date of service: 01/10/21 Interval history: 40-year-old male with known history of mental illness and methamphetamine abuse brought into the emergency room by EMS today after he had called 911 and indicates he wants to be evaluated because he used quite a bit of methamphetamine. Patient admitted he had been off his psychiatric medications and needed to be evaluated. He was said to have swallowed a bunch of methamphetamine. Upon arrival in the emergency room patient was said to have gone to the bathroom when his was found to have tied to Díaz's around his neck and also tight to the toilet in an attempt to commit suicide. He was said to have denied suicidal and homicidal ideations to the ER staff upon arrival. Most of the history was gotten from the ER staff as patient is unable to give any history at this time. He was said to be quite agitated when he was being restrained in the emergency room. He also sustained some bruises over his face and nose when he was being restrained. Work-up in the emergency room UDS was positive for methamphetamine, other significant findings were that of hemoglobin of 15.8 and hematocrit of 46.1. He had a mild hyponatremia of 134. Poison control was consulted for his methamphetamine ingestion. Social history: he smoked 1 pack per day for 25 years. No EtOH. Admits to marijuana and cocaine. 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 Patient was sleeping. He is on room air, O2 sat 99%. He admits to nonspecific chest pain and slight shortness of breath. Denies cough. Patient is afebrile, blood pressure 117/83, heart rate of 67. Neutropenia present. Hemoglobin is 15.3 and hematocrit is 44. Chest x-ray (01/06/21): No acute abnormality of the chest. Medications currently: Heparin SubQ. Objective Vital Signs - 12hr 01/10/21 01/10/21 01/10/21 03:55 08:20 09:02 Temperature 98.1 F 98.6 F Pulse Rate 83 74 78 Respiratory 18 18 Rate Blood Pressure 111/71 109/68 O2 Sat by Pulse 98 100 95 Oximetry Constitutional: no acute distress Eyes: non-icteric ENT: oropharynx moist Neck: supple, no lymphadenopathy Effort: normal Ascultation: Bilateral: clear Cardiovascular: regular rate and rhythm Gastrointestinal: normoactive bowel sounds, soft, non-tender Integumentary: normal Extremities: no cyanosis, no edema Neurologic: normal mental status, pupils equal and round Psychiatric: mood appropriate CBC and BMP: 01/10/21 12:53 01/10/21 12:53 ABG, PT/INR, D-dimer: PT/INR, D-dimer PT 13.8 Sec. (12.2-14.9) 01/07/21 04:43 INR 1.01 (0.87-1.13) 01/07/21 04:43 Abnormal lab findings: Abnormal Labs 01/06/21 01/06/21 01/06/21 17:21 17:21 17:21 WBC Hgb 15.8 H Hct 46.1 H MCV 95 H MCH 33 H MCHC RDW 15.4 H Lymph % (Auto) 12.5 L [place] % (Auto) 8.7 H Lymph # (Auto) 0.9 L Seg Neutrophils % 77.8 H Sodium 134 L Chloride 94.6 L Carbon Dioxide 14 L BUN 8 L Creatinine Glucose 122 H POC Glucose Calcium AST 53 H Total Creatine Kinase Salicylates < 0.3 L Acetaminophen 01/06/21 01/06/21 01/07/21 17:21 17:21 04:43 WBC Hgb Hct MCV MCH MCHC 35 H RDW 15.3 H Lymph % (Auto) [place] % (Auto) 8.2 H Lymph # (Auto) 0.9 L Seg Neutrophils % 77.4 H Sodium Chloride Carbon Dioxide BUN Creatinine Glucose POC Glucose Calcium AST Total Creatine Kinase 505 H Salicylates Acetaminophen 5.0 L 01/07/21 01/08/21 01/08/21 04:43 05:14 05:14 WBC 4.4 L Hgb Hct MCV MCH 33 H MCHC 36 H RDW 15.4 H Lymph % (Auto) [place] % (Auto) 8.1 H Lymph # (Auto) 0.8 L Seg Neutrophils % Sodium Chloride Carbon Dioxide BUN 5 L 7 L Creatinine 0.6 L 0.7 L Glucose POC Glucose Calcium 8.2 L 8.1 L AST Total Creatine Kinase Salicylates Acetaminophen 01/09/21 01/09/21 11:34 21:36 WBC Hgb Hct MCV MCH MCHC RDW Lymph % (Auto) [place] % (Auto) Lymph # (Auto) Seg Neutrophils % Sodium Chloride Carbon Dioxide BUN Creatinine Glucose POC Glucose 184 H 122 H Calcium AST Total Creatine Kinase Salicylates Acetaminophen Chest x-ray: report reviewed, image reviewed Additional Studies: CHEST 1 VIEW 01/06/2021 4:40 PM INDICATION / CLINICAL INFORMATION: Medical Clearance Psych; s/p attempted strangulation. COMPARISON: None available. FINDINGS: SUPPORT DEVICES: None. HEART / MEDIASTINUM: No significant abnormality. LUNGS / PLEURA: No significant pulmonary abnormality. No significant pleural effusion. No pneumothorax. ADDITIONAL FINDINGS: No significant additional findings. IMPRESSION: 1. No acute abnormality of the chest.
[2021-01-10 13:15] LABS: Basophils % (Auto) 0.9 % (0.0-1.8); Eosinophils # (Auto) 0.1 K/mm3 (0.0-0.4); Eosinophils % (Auto) 3.7 % (0.0-4.3); Hemoglobin 15.3 gm/dl (11.8-15.2); Lymphocytes % (Auto) 25.1 % (13.4-35.0); Mean Corpuscular HGB Conc 35 % (32-34); Mean Corpuscular Volume 93 fl (84-94); Monocytes # (Auto) 0.4 K/mm3 (0.0-0.8); Monocytes % (Auto) 11.5 % (0.0-7.3); Platelet Count 231 K/mm3 (140-440); Red Blood Count 4.75 M/mm3 (3.65-5.03); Red Cell Distribution Width 15.5 % (13.2-15.2)
--- NOTE | 2021-01-10 13:21 | Progress Note ---
Subjective - Reason for Consult Consult date: 01/10/21 Reason for consult: SA - Chief Complaint Chief complaint: The patient was seen today, he reports feeling better. He denies depression and denies feeling excessively anxious. The patient reports sleep and appetite as good. He denies any current suicidal/ homicidal ideation and denies hallucinations. REVIEW OF SYSTEMS Constitutional: Negative for weight loss ENT: Negative for stridor Respiratory: Negative for cough or hemoptysis All other systems reviewed and are negative MENTAL STATUS EXAMINATION General Appearance and Behavior: Age appropriate, good hygiene, wearing appropriate clothes, cooperative, cooperative Cooperation: Participating/engaged Psychomotor Behavior: normal Mood: Good Affect and affective range: congruent with stated mood Thought Process: Not SI Thought Content: Self directed Speech: Normal volume, Regular rate and rhythm Suicidal Ideation: Denies Homicidal Ideation: Denies Hallucinations:Denies Delusions: None elicited Impulse Control: impaired Insight and Judgment: Limited insight and judgment, Memory: normal Attention: Normal Orientation: Alert, oriented Assessment and Plan (1) Acute Psychosis Current Visit: Yes Status: Acute Treatment Plan Sitter: Per primary Medical: Per primary Disposition: Do not recommend acute psychiatric inpatient treatment. The patient understands that if suicidal/homicidal ideas or any endangering thoughts/ behaviors arise, they should seek immediate assistance including but not limited to crisis hotline and emergency room. The patient will follow up with outpatient referrals provided by the mental health spike maker. Will sign off. Thanks Case staffed with Dr. Valverde Mental Status Exam - Vital signs Last Vital Signs Temp 98.6 F 01/10/21 08:20 Pulse 78 01/10/21 09:02 Resp 18 01/10/21 08:20 BP 109/68 01/10/21 08:20 Pulse Ox 95 01/10/21 09:02
[2021-01-10 13:29] LABS: Blood Urea Nitrogen 9 mg/dL (9-20); Calcium 9.2 mg/dL (8.4-10.2); Hemolysis Index 7
[2021-01-10 13:33] LABS: BUN/Creatinine Ratio 15
[2021-01-11] MEDS ORDERED: ALPRAZolam 0.5 MG TAB PO ONE (03:01)
[2021-01-11] MEDS: HEPARIN 5,000 UNIT/1 ML VIAL SUB-Q SCH (06:31)
[2021-01-11 09:14] VITALS: BP 112/76
[2021-01-11] MEDS ORDERED: ASPIRIN EC 325 MG TAB PO SCH (10:00)
--- NOTE | 2021-01-11 10:09 | Electrocardiograph Report ---
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
--- NOTE | 2021-01-11 12:00 | Consultation ---
History of Present Illness Consult date: 01/11/21 Consult reason: chest pain History of present illness: The patient is a 41-year-old man admitted to this hospital 4 days ago with de pression, paranoia and suicidal ideation. He has a history of substance abuse and the day prior to his presentation he was reported to have been continuously consuming methamphetamines. During his course here, he has been managed by psychiatry and internal medicine, but continues to have episodes where he expresses paranoid fantasies and ideations. Yesterday, he complained of brief episode of chest tightness when he was in bed, associated with transient shortness of breath. Consequent to his chest pain complaint, cardiology consultation was requested. The patient has no cardiac history. He states he is physically active and was very active on the days prior to admission, and has no exercise intolerance, no chest pain with exertion, no palpitations. Currently he looks and feels well, no cardiac complaints. Serial ECGs done since his admission show a sinus rhythm with diffuse J-point elevation consistent with normal early repolarization. Past History Past Medical History: other (Mental Illness, Methamphetamine Use) Past Surgical History: No surgical history Social history: other (Methamphetamine Use) Family history: no significant family history Medications and Allergies Allergies Allergy/AdvReac Type Severity Reaction Status Date / Time Penicillins Allergy Unknown Verified 01/07/21 19:59 Active Meds: Active Medications Acetaminophen (Acetaminophen 325 Mg Tab) 650 mg PO Q6H PRN PRN Reason: Pain, Mild (1-3) Aspirin (Aspirin Ec 325 Mg Tab) 325 mg PO QDAY [facility] Last Admin: 01/11/21 10:04 Dose: 325 mg Documented by: Heparin Sodium (Porcine) (Heparin 5,000 Unit/1 Ml Vial) 5,000 unit SUB-Q Q8HR [facility] Last Admin: 01/11/21 06:31 Dose: Not Given Documented by: Sodium Chloride (Nacl 0.9% 1000 Ml) 1,000 mls @ 125 mls/hr IV DIRECT [facility] Last Admin: 01/07/21 02:40 Dose: 125 mls/hr Documented by: Lorazepam (Lorazepam 2 Mg/Ml Vial) 2 mg IV Q4H PRN PRN Reason: Agitation Last Admin: 01/08/21 16:02 Dose: 2 mg Documented by: Magnesium Hydroxide (Magnesium Hydroxide (Mom) Oral Liqd Udc) 30 ml PO Q4H PRN PRN Reason: Constipation Morphine Sulfate (Morphine 2 Mg/1 Ml Inj) 2 mg IV Q4H PRN PRN Reason: Pain, Moderate (4-6) Last Admin: 01/09/21 18:10 Dose: 2 mg Documented by: Morphine Sulfate (Morphine 4 Mg/1 Ml Inj) 4 mg IV Q4H PRN PRN Reason: Pain , Severe (7-10) Last Admin: 01/10/21 18:22 Dose: 4 mg Documented by: Sodium Chloride (Sodium Chloride 0.9% 10 Ml Flush Syringe) 10 ml IV BID [facility] Last Admin: 01/11/21 10:04 Dose: 10 ml Documented by: Sodium Chloride (Sodium Chloride 0.9% 10 Ml Flush Syringe) 10 ml IV PRN PRN PRN Reason: LINE FLUSH Tramadol HCl (Tramadol 50 Mg Tab) 50 mg PO Q6H PRN PRN Reason: Pain, Moderate (4-6) Review of Systems Cardiovascular: chest pain, shortness of breath, no orthopnea, no palpitations, no rapid/irregular heart beat, no edema, no syncope, no lightheadedness Physical Examination Vital Signs Pulse Resp Pulse Ox 134 H 27 H 97 01/06/21 16:58 01/06/21 16:58 01/06/21 16:58 General appearance: no acute distress HEENT: Positive: PERRL Neck: Positive: neck supple Cardiac: Positive: Reg Rate and Rhythm Lungs: Positive: Decreased Breath Sounds Neuro: Positive: Grossly Intact Abdomen: Positive: Soft Male genitourinary: Positive: deferred Skin: Positive: Clear Extremities: Absent: edema Results 01/10/21 12:53 01/10/21 12:53 CBC 01/10/21 Range/Units 12:53 WBC 3.8 L (4.5-11.0) K/mm3 RBC 4.75 (3.65-5.03) M/mm3 Hgb 15.3 H (11.8-15.2) gm/dl Hct 44.0 (35.5-45.6) % Plt Count 231 (140-440) K/mm3 Lymph # (Auto) 1.0 L (1.2-5.4) K/mm3 [place] # (Auto) 0.4 (0.0-0.8) K/mm3 Eos # (Auto) 0.1 (0.0-0.4) K/mm3 Baso # (Auto) 0.0 (0.0-0.1) K/mm3 Comprehensive Metabolic Panel 01/10/21 Range/Units 12:53 Sodium 136 L (137-145) mmol/L Potassium 3.9 (3.6-5.0) mmol/L Chloride 99.8 (98-107) mmol/L Carbon Dioxide 28 (22-30) mmol/L BUN 9 (9-20) mg/dL Creatinine 0.6 L (0.8-1.3) mg/dL Glucose 79 (75-100) mg/dL Calcium 9.2 (8.4-10.2) mg/dL EKG interpretations - Telemetry EKG Rhythm: Sinus Rhythm (With early repolarization ST changes) Assessment and Plan - Patient Problems (1) Atypical chest pain Current Visit: Yes Status: Acute Plan to address problem: Atypical chest pain in the setting of admission for acute paranoia, depression and suicidal ideation. Serial ECGs show sinus rhythm and normal early repolarization changes, no prior cardiac history. We will order an exercise ECG test for cardiac chest pain assessment, low suspicion.
--- NOTE | 2021-01-11 12:45 | Discharge Summary ---
Providers - Providers Date of Admission: 01/06/21 21:56 Date of discharge: 01/11/21 Attending physician: MICHAEL DUNN MD 01/06/21 23:35 Consult to Dietitian/Nutrition [CONS] Routine Physician Instructions: Reason For Exam: Reason for Consult: Diet education Consult to Physician [CONS] Routine Comment: Consulting Provider: BAL DANIELSON Physician Instructions: Reason For Exam: SUICIDE ATTEMPT- ADMITTED TO ICU 01/06/21 23:42 Consult to Mental Health [CONS] Routine Reason For Exam: SUICIDE ATTEMPT 01/07/21 04:52 Consult to Wound/ET Nurse [CONS] Routine Reason For Exam: wound eval- wounds on face 01/10/21 Consult to Cardiac Rehabilitation [CONS] Routine Reason For Exam: Phase I 01/10/21 11:07 Consult to Cardiology [CONS] Routine Consulting Provider: MIHAI BAZAN Reason For Exam: cp Primary care physician: [employer] Hospitalization Reason for admission: methamphetamine intoxication Condition: Good Hospital course: History of present illness: 40-year-old male with known history of mental illness and methamphetamine abuse brought into the emergency room by EMS today after he had called 911 and indicates he wants to be evaluated because he used quite a bit of methamphetamine. Patient admitted he had been off his psychiatric medications and needed to be evaluated. He was said to have swallowed a bunch of methamphetamine. Upon arrival in the emergency room patient was said to have gone to the bathroom when his was found to have tied to Díaz's around his neck and also tight to the toilet in an attempt to commit suicide.. He was said to have denied suicidal and homicidal ideations to the ER staff upon arrival. Most of the history was gotten from the ER staff as patient is unable to give any history at this time. He was said to be quite agitated with when he was being restrained in the emergency room. He also sustained some bruises over his face and nose when he was being restrained. Work-up in the emergency room UDS was positive for methamphetamine, other significant findings were that of hemoglobin of 15.8 and hematocrit of 46.1. He had a mild hyponatremia of 134. Poison control was consulted for his methamphetamine ingestion. Recommendation is to have patient monitored and also to place on benzodiazepine as needed for agitation. Hospital Course: 01/07/2021. Patient is currently on four-point restraints and somnolent. Continue 1013 and psychiatry consultation pending. CT scan of the head, face and C-spine revealed no acute traumatic injuries. The patient has received several dosages of medication for chemical restraining associated with extreme agitation per ER record. Please see ED note. Labs at present appear unremarkable. Continue to monitor. 01/08/2021. Patient currently calm and not needing restraints. Patient currently with 1013 designation. Await psychiatry evaluation. Transfer to telemetry floor with one-to-one sitter. Suicidal precautions. 01/09/2021. Patient is calm and not requiring restraints. Continue 1013 per psychiatry. Await inpatient psych transfer. Patient is medically stable for discharge. 01/10/2021. Psychiatry has rescinded the 1013. Patient was planned for discharge but complained of chest pain today. Therefore, we will place on the chest pain pathway and follow-up cardiac isoenzymes. Schedule stress test in a.m. Cardiology consultation. Echocardiogram completed September 2020 revealed moderate concentric left ventricular hypertrophy with left ventricular systolic function moderately decreased. LVEF 35 to 40%. Also pulmonary hypertension with RVSP 36 mmHg 01/11/2021: Patient declined cardiac stress test this morning. Discussed case with cardiology who agreed that chest pain was likely due to anxiety. Patient did have some paranoia overnight. However, discussed with psychiatry who still recommends he follows up outpatient as patient does not have suicidal thoughts and initial reason for admission likely from longstanding methamphetamine use. They did not recommend any new medications for patient or admission to inpatient psychiatry. Patient was advised to follow-up with an outpatient psychiatrist and cardiology. He has good social support from mother who will help take care of him and help take him to his appointments. He was advised to abstain from using any recreational drugs in the future. Patient will be discharged today. Disposition: DC-01 TO HOME OR SELFCARE Final Discharge Diagnosis (Prints w/discharge instructions): methamphetamine intoxication. Time spent for discharge: 35 - Discharge Diagnoses (1) Acute hyperactive delirium due to multiple etiologies Status: Acute (2) Atypical chest pain Status: Acute (3) Contusion of face Status: Acute (4) Methamphetamine intoxication Status: Acute (5) Suicide attempt by hanging Status: Acute Core Measure Documentation - Palliative Care Palliative Care/ Comfort Measures: Not Applicable - Core Measures Any of the following diagnoses?: none Exam - Physical Exam Narrative exam: General appearance: no acute distress HEENT: Positive: PERRL Neck: Positive: neck supple Cardiac: Positive: Reg Rate and Rhythm Lungs: Positive: Decreased Breath Sounds Neuro: Positive: Grossly Intact Abdomen: Positive: Soft Male genitourinary: Positive: deferred Skin: Positive: Clear Extremities: Absent: edema - Constitutional Vitals: Temp Pulse Resp BP Pulse Ox 98.0 F 74 18 112/76 100 01/11/21 08:04 01/11/21 08:04 01/11/21 08:04 01/11/21 08:04 01/11/21 08:27 Plan Diet: regular Follow up with: ARMANI BOCANEGRA MD [Primary Care Provider] - 3-5 Days MIHAI BAZAN MD [Staff Physician] - 7 Days
--- NOTE | 2021-01-14 09:04 | Electrocardiograph Report ---
[facility] Test Date: 2021-01-11 Test Time: 10:20:10 Pat Name: YOBANI HILL Department: Room: A477 1 Gender: M Clinic Director: DIXIE : 1980 Requested By: DAJA TOWNSEND Order Number: [id number] Reading MD: Geoffrey Butt Measurements Intervals [place] Rate: 70 P: 58 [place]: 169 QRS: 44 QRSD: 75 T: 57 QT: 395 QTc: 428 Interpretive Statements Sinus rhythm Borderline ST elevation, early replorization Compared to ECG 01/10/2021 11:39:17 ST (T wave) deviation now present Electronically Signed On 01-14-2021 9:03:47 EDT by Geoffrey Butt
== END 2021-01-11 16:01 | disposition home or self-care (01) | DRG 918 ==
LOC: ED 16:28 → CC1 21:56 → IMCU 01-07 17:24 → 4A 01-08 22:38
PROVIDERS: ADMIT Internal Medicine Geriatric Medicine; ATTEND Internal Medicine
DX: T43.622A Poisoning by amphetamines, intentional self-harm, initial encounter (principal); I50.42 Chronic combined systolic (congestive) and diastolic (congestive) heart failure; T71.162A Asphyxiation due to hanging, intentional self-harm, initial encounter; I42.8 Other cardiomyopathies; F05 Delirium due to known physiological condition; F23 Brief psychotic disorder; S10.93XA Contusion of unspecified part of neck, initial encounter; S00.83XA Contusion of other part of head, initial encounter; T14.91XA Suicide attempt, initial encounter; F15.129 Other stimulant abuse with intoxication, unspecified; F32.9 Major depressive disorder, single episode, unspecified; Z20.822 Contact with and (suspected) exposure to COVID-19; I48.0 Paroxysmal atrial fibrillation; F17.210 Nicotine dependence, cigarettes, uncomplicated; F22 Delusional disorders; R07.89 Other chest pain; Y93.89 Activity, other specified; Y99.8 Other external cause status; X83.8XXA Intentional self-harm by other specified means, initial encounter; Y92.89 Other specified places as the place of occurrence of the external cause; Z88.0 Allergy status to penicillin
CPT/HCPCS: 36415; 70450; 70486; 71045; 72125; 74018; 80048; 80053; 80307; 80320; 81001; 82550; 82962; 84443; 84484; 85025; 85610; 90715; 93005; 96374; 99292; G0378; G0480; J1644; J2060; J2270; J7030; U0003